=== PATIENT | female | born 1970 | race Caucasian/White ===

== ENCOUNTER → 2018-05-25 13:16 | Outpatient (CLI) | payer BC, SELFPAY ==
--- NOTE | 2018-05-25 13:21 | DI.RAD.S_ITS ---
PROCEDURE: XR LUMBAR SPINE 2-3V INDICATIONS: Low back pain TECHNIQUE: 3 views of the lumbar spine were acquired. COMPARISON: [facility], , L-SPINE MINIMUM 4 VIEWS, 05/05/2011, 11:45. FINDINGS: Bones: No fracture focal osseous destruction. Mild levocurvature. Mild narrowing of the L4-L5 and L5-S1 disc spaces. No interval change Soft tissues: Overlying bowel gas pattern is normal. Nonspecific subcentimeter calcification projecting in the right upper quadrant, possibly cholelithiasis. IMPRESSION: Mild lower lumbar disc degeneration, grossly unchanged Mild levocurvature which has progressed slightly since the prior study. Dictated by: Lucho Witt M.D. on 05/25/2018 at 14:18 Approved by: Lucho Witt M.D. on 05/25/2018 at 14:21
--- NOTE | 2018-05-25 13:21 | DI.RAD.S_ITS ---
PROCEDURE: XR SACRUM COCCYX MIN 2V INDICATIONS: Low back pain TECHNIQUE: 3 views of the sacrum and coccyx acquired. COMPARISON: None. FINDINGS: Bones: No fractures or dislocations. No suspicious bony lesions. Soft tissues: Visualized bowel gas pattern is normal. No suspicious soft tissue densities. IMPRESSION: No fracture Dictated by: Lucho Witt M.D. on 05/25/2018 at 14:21 Approved by: Lucho Witt M.D. on 05/25/2018 at 14:23
[2018-05-25 13:56] LABS: Erythrocyte Sedimentation Rate 7 MM/HR (0-20)
[2018-05-25 13:58] LABS: C-Reactive Protein Quant < 0.5 mg/dL (<1.0)
== END ==
PROVIDERS: Family Provider Internal Medicine; PCP Internal Medicine; Visit Provider Physician Assistant
DX: M54.5 Low back pain (principal); M51.36 Other intervertebral disc degeneration, lumbar region; M51.37 Other intervertebral disc degeneration, lumbosacral region
CPT/HCPCS: 36415; 72100; 72220; 85651; 86140

== ENCOUNTER → 2018-10-26 07:04 | Outpatient (CLI) | payer OTHER, SELFPAY ==
--- NOTE | 2018-10-26 | DI.US.S_ITS ---
PROCEDURE: US PELVIC COMPLETE INDICATIONS: Left lower quadrant pain TECHNIQUE: Real-time scanning was performed of the pelvic organs, with image documentation. Additional endovaginal scanning was necessary due to incomplete visualization of the adnexal and endometrial structures by transabdominal scanning. COMPARISON: [facility], US, PELVIC COMPLETE, 08/08/2017, 11:25. [facility], , PELVIC COMPLETE, 08/04/2017, 13:20. FINDINGS: Transabdominal scanning: Limited scanning through the kidneys shows no hydronephrosis. No pathologic free abdominal or pelvic fluid. Endovaginal scanning: Uterus: Uterus is normal in size at 3.1 x 4.5 x 6.0 cm, anteverted. Notice made of the small 2.0 x 1.9 x 2.9 cm intramural fibroid on the right The endometrium measures 3 mm in combined thickness. Ovaries: The ovaries bilaterally are normal in size measuring up to 1.1 x 1.9 x 2.9 cm on the right and 1.3 x 1.6 x 1.8 cm on the left. IMPRESSION: Small intramural right-sided uterine fibroid, normal endometrial thickness, normal appearing ovaries and there is no identified source of reported left lower quadrant pain. Dictated by: Ousmane Hernandez M.D. on 10/26/2018 at 8:17 Approved by: Ousmane Hernandez M.D. on 10/26/2018 at 8:25
== END ==
PROVIDERS: Family Provider Internal Medicine; PCP Internal Medicine; Visit Provider Obstetrics & Gynecology
DX: R10.32 Left lower quadrant pain (principal); D25.1 Intramural leiomyoma of uterus
CPT/HCPCS: 76830; 76856

== ENCOUNTER 2019-01-28 19:52 | Observation (INO) | payer OTHER, SELFPAY ==
[2019-01-28 19:57] VITALS: BP 126/85; PULSE 75; RESP 16; TEMP 36.3; O2SAT 98; BMI 22.2
--- NOTE | 2019-01-28 20:13 | DI.CT.S_ITS ---
PROCEDURE: CT HEAD/BRAIN WO CON INDICATIONS: epigastic pain, dizzy TECHNIQUE: Noncontrast 4.5 mm thick angled axial sections acquired from the foramen magnum to the vertex, with coronal and sagittal reformats. For radiation dose reduction, the following was used: automated exposure control, adjustment of mA and/or kV according to patient size. COMPARISON: None. FINDINGS: Image quality: Excellent. CSF spaces: Basal cisterns are patent. No extra-axial fluid collections. Ventricles are normal in size and shape. Brain: No midline shift. No intracranial masses or hemorrhage. Valdez-white matter interface is normal. Skull and face: Calvarium and visualized facial bones are intact, without suspicious lesions. Sinuses: Visualized sinuses and mastoids are clear. IMPRESSION: No CT evidence of acute intracranial process. Dictated by: Mirna Jc M.D. on 01/28/2019 at 21:21 Approved by: Mirna Jc M.D. on 01/28/2019 at 21:21
--- NOTE | 2019-01-28 20:13 | DI.RAD.S_ITS ---
PROCEDURE: XR CHEST 1V INDICATIONS: sudden onset dizziness TECHNIQUE: One view of the chest was acquired. COMPARISON: [facility], , CHEST 2 VIEW, 04/06/2015, 11:20. FINDINGS: Surgical changes and devices: None. Lungs and pleura: Lungs are clear. No pleural effusions or pneumothorax. Mediastinum: Mediastinal contours appear normal. Heart size is normal. Bones and chest wall: No suspicious bony lesions. Overlying soft tissues appear unremarkable. IMPRESSION: Normal chest. Dictated by: Mirna Jc M.D. on 01/28/2019 at 21:21 Approved by: Mirna Jc M.D. on 01/28/2019 at 21:21
[2019-01-28 20:25] LABS: Add Manual Diff / Slide Review NO; Basophils Absolute Auto 100 /uL (0-100); Basophils Percent Auto 0.7 % (0-2); Eosinophils Absolute Auto 100 /uL (0-450); Eosinophils Percent Auto 0.8 % (2-4); Hematocrit 40.8 % (36-46); Hemoglobin 13.9 g/dL (12.0-16.0); Lymphocytes Absolute Auto 1300 /uL (1100-4500); Lymphocytes Percent Auto 12.9 % (25-40); Mean Corpuscular HGB Conc 34.1 % (30-36); Mean Corpuscular Hemoglobin 32.1 PG (26-34); Mean Corpuscular Volume 94.2 fL (80-100); Monocytes Absolute Auto 600 /uL (0-900); Monocytes Percent Auto 5.9 % (3-14); Neutrophils Absolute Auto 7900 /uL (1500-7000); Neutrophils Percent Auto 79.7 % (50-75); Platelet Count 230 X10^3/uL (150-400); Red Blood Cell Count 4.33 X10^6/uL (4.0-5.2); Red Cell Distribution Width 13.2 % (11.6-14.8); White Blood Cell Count 9.9 X10^3/uL (4.5-11.0)
--- NOTE | 2019-01-28 20:25 | ED.DIZZY ---
HPI - Dizziness <Sena Camacho, LUMBER PILER OPERATOR-BC - Last Filed: 01/28/19 21:13> General Chief Complaint: Dizziness Stated Complaint: dizziness with N/V x2 days Time Seen by Provider: 01/28/19 20:02 Source: patient and family Mode of arrival: ambulatory Limitations: no limitations History of Present Illness HPI Narrative: The patient is a 48-year-old female former smoker with history of ovarian cyst who presents with chief complaint of nausea vomiting and dizziness for the past 2 days. Prior to this, she felt as though she had a cold coming and tried some ear drops. She states there alcohol ear drops am to dry out her ears. She states the dizziness and spinning started on Tuesday, when she fell asleep and then woke up with severe nausea vomiting. She states that the room was spinning around her. She states that she currently feels like she is spinning, worsened by movement and changes in position. She does report left ear and pain. She denies any fevers. She has tried nasal spray, Children's Sudafed, and feels no better. She also states that she has some epigastric pain, and has been evaluated by her PCP for this. She states this is been ongoing for a month. She denies any abdominal pain, dysuria urgency or frequency. Related Data Home Medications Medication Instructions Recorded Confirmed multivitamin [Multiple Vitamins] 1 tab PO QDAY #0 tab 03/31/16 10/26/18 [ARNICA] #0 08/04/17 10/26/18 [BROMOLINE] #0 08/04/17 10/26/18 [TURMERIC] #0 08/04/17 10/26/18 progesterone micronized 100 mg 100 mg PO QPM 05/25/18 01/29/19 capsule Previous Rx's Medication Instructions Recorded fluticasone propionate 1 spray INTRANASAL SEE 04/07/17 INSTRUCTIONS #16 gm ondansetron 8 mg disintegrating 8 mg PO BID PRN #20 tab 10/26/18 tablet Allergies Allergy/AdvReac Type Severity Reaction Status Date / Time NSAIDS (Non-Steroidal Allergy Unknown BLISTERS; Verified 01/28/19 20:00 Anti-Inflamma PHOTOSENSITIVITY [NSAIDS (NON-STEROIDAL ANTI-INFLAMMA] Penicillins [PENICILLINS] Allergy Unknown HIVES Verified 01/28/19 20:00 gabapentin [GABAPENTIN] AdvReac Unknown tolerated Verified 01/28/19 20:00 well, reacted when dc'd; does not want to take NARCOTIC Allergy Unknown STATES Uncoded 01/28/19 20:00 SENSITIVITY Review of Systems <BRAYDEN Cerda - Last Filed: 01/28/19 21:13> Review of Systems GENERAL: Denies chills, fatigue, malaise, fever, sweats. HEENT: Denies sinus pain, ear pain, sore throat, difficulty swallowing, dizziness. RESPIRATORY: Denies dyspnea, cough, wheezing, hemoptysis, sputum. CARDIOVASCULAR: Denies chest pain, palpitations, orthopnea, edema, GASTROINTESTINAL: See HPI : Denies dysuria, frequency, incontinence, hematuria, urinary retention. MUSCULOSKELETAL: denies weakness, joint pain, or bony pain SKIN: Denies rash, skin lesions, or other NEUROLOGIC: See HPI PSYCHIATRIC: No concerning psychosocial issues. 12 point review of systems is negative except for those stated above PFSH <BRAYDEN Cerda - Last Filed: 01/28/19 21:13> Surgical History Status post discectomy Status post discectomy Status post knee surgery Status post knee surgery Status post knee surgery Status post laparoscopy Status post laparoscopy (07/18/17) Family History (Updated 03/08/14 @ 00:00 by Conversion Provider) Father Age: 70 High cholesterol Social History Smoking Status: Former smoker Family History Father Age: 70 High cholesterol Social History Smoking Status: Former smoker Exam <BRAYDEN Cerda - Last Filed: 01/28/19 21:13> Narrative Exam Narrative: GENERAL: Female lying on stretcher holding a vomit bag HEAD: Atraumatic. Normocephalic. No temporal or scalp tenderness. EYES: Pupils equal round and reactive. Extraocular motions intact. No scleral icterus. No injection or drainage. Lateral nystagmus noted. ENT: Nose without bleeding, purulent drainage or septal hematoma. Throat without erythema, tonsillar hypertrophy or exudate. Uvula midline. Airway patent. Bilateral TMs pearly schrader. NECK: Trachea midline. No JVD or lymphadenopathy. Supple, nontender, no meningeal signs. CARDIOVASCULAR: Regular rate and rhythm without murmurs, gallops, or rubs. RESPIRATORY: Clear to auscultation. Breath sounds equal bilaterally. No wheezes, rales, or rhonchi. No cough. No increased respiratory effort. No accessory muscle use. No stridor. GASTROINTESTINAL: Abdomen soft, non-tender, nondistended. No hepato-splenomegaly, or palpable masses. No guarding. Active bowel sounds all 4 quadrants EXTREMITIES: No clubbing, cyanosis, or edema. No joint tenderness, effusion, or edema noted. BACK: Nontender without deformity or crepitance. No flank tenderness. NEURO: AOx3. Speech is clear. Strength is equal upper and lower extremities bilaterally. No gross cranial nerve deficit. SKIN: No rash or erythema. Initial Vital Signs Initial Vital Signs: Vital Signs Temperature 97.4 F L 01/28/19 19:57 Pulse Rate 75 01/28/19 19:57 Respiratory Rate 16 01/28/19 19:57 Blood Pressure 126/85 01/28/19 19:57 Pulse Oximetry 98 01/28/19 19:57 <Trever Keller DO - Last Filed: 01/29/19 00:46> Initial Vital Signs Initial Vital Signs: Vital Signs Temperature 97.4 F L 01/28/19 19:57 Pulse Rate 75 01/28/19 19:57 Respiratory Rate 16 01/28/19 19:57 Blood Pressure 126/85 01/28/19 19:57 Pulse Oximetry 98 01/28/19 19:57 Scores <BRAYDEN Cerda - Last Filed: 01/28/19 21:13> GCS [place] coma scale eye opening: Spontaneous Caro coma scale verbal response: Orientated [place] coma scale motor response: Obey commands Caro coma scale total score: 15 Course <BRAYDEN Cerda - Last Filed: 01/28/19 21:13> Orders Ordered: ED Orders 01/28/19 20:13 CT head/brain wo con Stat XR chest 1V Stat EKG-12 Lead Stat 01/28/19 20:15 Amylase Stat Complete Blood Count AUTO DIFF Stat Comprehensive Metabolic Panel Stat Lipase Stat Magnesium Stat Troponin I Stat 01/29/19 06:00 Basic Metabolic Panel Stat Complete Blood Count AUTO DIFF Stat Discontinued Medications Sodium Chloride (Normal Saline 0.9%) 1,000 mls @ 1,000 mls/hr IV BOLUS ONE Stop: 01/28/19 21:24 Last Infusion: 01/28/19 22:17 Dose: 0 mls/hr Admin: 01/28/19 20:29 Dose: 1,000 mls/hr Meclizine HCl (Antivert) 50 mg PO NOW ONE Stop: 01/28/19 21:04 Last Admin: 01/28/19 21:09 Dose: 50 mg Ondansetron HCl (Zofran) 4 mg IV NOW ONE Stop: 01/28/19 20:13 Last Admin: 01/28/19 20:29 Dose: 4 mg Ondansetron HCl (Zofran) 4 mg IV NOW ONE Stop: 01/29/19 00:14 Last Admin: 01/29/19 00:21 Dose: 4 mg Pantoprazole Sodium (Protonix) 40 mg IV NOW ONE Stop: 01/29/19 00:13 Last Admin: 01/29/19 00:22 Dose: 40 mg Vital Signs - 8 hr 01/28/19 19:57 01/28/19 21:33 01/29/19 00:39 Temperature 97.4 F L Pulse Rate 75 68 68 Respiratory Rate 16 15 16 Blood Pressure 126/85 Blood Pressure [Right Arm] 100/58 L 110/68 Pulse Oximetry 98 98 96 <Trever Keller, - Last Filed: 01/29/19 00:46> Course Narrative: I received this patient in sign-out and performed an independent history and physical exam. She continues to have significant vertiginous type dizziness and persistent nausea and vomiting with any motion. She denies any trauma. Labs and head CT are unremarkable, [place]-Hallpike maneuver notes fast which nystagmus to the right side. Ginny's maneuver was unsuccessful in improving patient's symptoms. HINTS Exam noted minimal delay with Head Impulse. Nystagmus is fast twitch to the right. Head impulse test: Loss of fixation with corrective saccade when head turned to the [Right] Nystagmus: unidirectional, horizontal with fast twitch to the Right Skew Deviation: grossly absent Patient requires observation in the hospital for hydration, stabilization of her condition, and more imaging to rule out more significant underlying causes such as stroke Orders Ordered: ED Orders 01/28/19 20:13 CT head/brain wo con Stat XR chest 1V Stat EKG-12 Lead Stat 01/28/19 20:15 Amylase Stat Complete Blood Count AUTO DIFF Stat Comprehensive Metabolic Panel Stat Lipase Stat Magnesium Stat Troponin I Stat 01/29/19 06:00 Basic Metabolic Panel Stat Complete Blood Count AUTO DIFF Stat Discontinued Medications Sodium Chloride (Normal Saline 0.9%) 1,000 mls @ 1,000 mls/hr IV BOLUS ONE Stop: 01/28/19 21:24 Last Infusion: 01/28/19 22:17 Dose: 0 mls/hr Admin: 01/28/19 20:29 Dose: 1,000 mls/hr Meclizine HCl (Antivert) 50 mg PO NOW ONE Stop: 01/28/19 21:04 Last Admin: 01/28/19 21:09 Dose: 50 mg Ondansetron HCl (Zofran) 4 mg IV NOW ONE Stop: 01/28/19 20:13 Last Admin: 01/28/19 20:29 Dose: 4 mg Ondansetron HCl (Zofran) 4 mg IV NOW ONE Stop: 01/29/19 00:14 Last Admin: 01/29/19 00:21 Dose: 4 mg Pantoprazole Sodium (Protonix) 40 mg IV NOW ONE Stop: 01/29/19 00:13 Last Admin: 01/29/19 00:22 Dose: 40 mg Vital Signs - 8 hr 01/28/19 19:57 01/28/19 21:33 01/29/19 00:39 Temperature 97.4 F L Pulse Rate 75 68 68 Respiratory Rate 16 15 16 Blood Pressure 126/85 Blood Pressure [Right Arm] 100/58 L 110/68 Pulse Oximetry 98 98 96 MDM - Dizziness <BRAYDEN Cerda - Last Filed: 01/28/19 21:13> Lab Data Result diagrams: 01/28/19 20:15 01/28/19 20:15 Lab Results 01/28/19 01/28/19 01/28/19 Range/Units 20:15 20:15 20:15 WBC 9.9 (4.5-11.0) X10^3/uL RBC 4.33 (4.0-5.2) X10^6/uL Hgb 13.9 (12.0-16.0) g/dL Hct 40.8 (36-46) % MCV 94.2 (80-100) fL MCH 32.1 (26-34) PG MCHC 34.1 (30-36) % RDW 13.2 (11.6-14.8) % Plt Count 230 (150-400) X10^3/uL Neut % (Auto) 79.7 H (50-75) % Lymph % (Auto) 12.9 L (25-40) % Powell % (Auto) 5.9 (3-14) % Eos % (Auto) 0.8 L (2-4) % Baso % (Auto) 0.7 (0-2) % Neut # (Auto) 7900 H (6459-2797) /uL Lymph # (Auto) 1300 (5011-7706) /uL Powell # (Auto) 600 (0-900) /uL Eos # (Auto) 100 (0-450) /uL Baso # (Auto) 100 (0-100) /uL Sodium 140 (137-145) mmol/L Potassium 3.9 (3.4-5.1) mmol/L Chloride 103 (98-107) mmol/L Carbon Dioxide 28 (22-32) mmol/L BUN 17 (7-17) mg/dL Creatinine 0.60 (0.52-1.04) mg/dL Estimated GFR > 60.0 (>60) mL/min BUN/Creatinine Ratio 28.3 H (6-22) Glucose 104 H (70-100) mg/dL Calcium 9.4 (8.4-10.2) mg/dL Magnesium 1.9 (1.6-2.3) mg/dL Total Bilirubin 0.8 (0.2-1.3) mg/dL AST 26 (14-36) IU/L ALT 13 (9-52) IU/L Alkaline Phosphatase 80 (38-126) U/L Troponin I < 0.012 (0.01-0.034) ng/mL Total Protein 7.3 (6.3-8.2) g/dL Albumin 4.3 (3.5-5.0) g/dL Globulin 3.0 (1.7-4.1) g/dL Albumin/Globulin Ratio 1.4 (1.0-2.8) Amylase 115 H (30-110) U/L Lipase 198 (23-300) U/L ECG Data Attestation: I personally reviewed and interpreted this ECG as follows: Interpretation: Sinus bradycardia. Ventricular rate 58. No ectopy noted. NV interval 151. QRS duration 97 MDM Narrative Medical decision making narrative: The patient is a 48-year-old female who presents with a chief complaint of dizziness, spinning sensation with a sudden onset 3 days ago. Given the sudden onset, and family history of stroke, I did obtain a head CT. Basic lab work is obtained in addition to cardiac labs as the patient has been complaining of epigastric pain for the past several weeks and working with her primary care provider. IV was started, IV fluids Zofran and meclizine were given. The patient's exam is very concerning for vertigo. The patient was signed out to Dr Keller at 9:00 p.m. with lab work and imaging pending at this time. <Trever Keller, DO - Last Filed: 01/29/19 00:46> Lab Data Lab Results 01/28/19 01/28/19 01/28/19 Range/Units 20:15 20:15 20:15 WBC 9.9 (4.5-11.0) X10^3/uL RBC 4.33 (4.0-5.2) X10^6/uL Hgb 13.9 (12.0-16.0) g/dL Hct 40.8 (36-46) % MCV 94.2 (80-100) fL MCH 32.1 (26-34) PG MCHC 34.1 (30-36) % RDW 13.2 (11.6-14.8) % Plt Count 230 (150-400) X10^3/uL Neut % (Auto) 79.7 H (50-75) % Lymph % (Auto) 12.9 L (25-40) % Powell % (Auto) 5.9 (3-14) % Eos % (Auto) 0.8 L (2-4) % Baso % (Auto) 0.7 (0-2) % Neut # (Auto) 7900 H (5561-5781) /uL Lymph # (Auto) 1300 (8077-4895) /uL Powell # (Auto) 600 (0-900) /uL Eos # (Auto) 100 (0-450) /uL Baso # (Auto) 100 (0-100) /uL Sodium 140 (137-145) mmol/L Potassium 3.9 (3.4-5.1) mmol/L Chloride 103 (98-107) mmol/L Carbon Dioxide 28 (22-32) mmol/L BUN 17 (7-17) mg/dL Creatinine 0.60 (0.52-1.04) mg/dL Estimated GFR > 60.0 (>60) mL/min BUN/Creatinine Ratio 28.3 H (6-22) Glucose 104 H (70-100) mg/dL Calcium 9.4 (8.4-10.2) mg/dL Magnesium 1.9 (1.6-2.3) mg/dL Total Bilirubin 0.8 (0.2-1.3) mg/dL AST 26 (14-36) IU/L ALT 13 (9-52) IU/L Alkaline Phosphatase 80 (38-126) U/L Troponin I < 0.012 (0.01-0.034) ng/mL Total Protein 7.3 (6.3-8.2) g/dL Albumin 4.3 (3.5-5.0) g/dL Globulin 3.0 (1.7-4.1) g/dL Albumin/Globulin Ratio 1.4 (1.0-2.8) Amylase 115 H (30-110) U/L Lipase 198 (23-300) U/L Discharge Plan Departure Patient Disposition: Admitted as Observation Clinical Impression: Dizziness Intractable vomiting Qualifiers: Vomiting type: unspecified Nausea presence: with nausea Qualified Code(s): R11.2 - Nausea with vomiting, unspecified Referrals: Karen Miller ARNP [Primary Care Provider] - Admit Date/Time: 01/28/19 23:28 Admit Provider: Sachi Nunez
[2019-01-28] MEDS: ONDANSETRON 4 MG/2 ML INJ IV (20:29)
[2019-01-28] MEDS: SODIUM CHLORIDE 0.9% 1,000 ML 1000 ML IV (20:29)
--- NOTE | 2019-01-28 20:29 | ED_ITS ---
HPI - Dizziness <Sena Camacho, SYSTEMS CHECKOUT MECHANIC-BC - Last Filed: 01/28/19 21:13> General Chief Complaint: Dizziness Stated Complaint: dizziness with N/V x2 days Time Seen by Provider: 01/28/19 20:02 Source: patient and family Mode of arrival: ambulatory Limitations: no limitations History of Present Illness HPI Narrative: The patient is a 48-year-old female former smoker with history of ovarian cyst who presents with chief complaint of nausea vomiting and dizziness for the past 2 days. Prior to this, she felt as though she had a cold coming and tried some ear drops. She states there alcohol ear drops am to dry out her ears. She states the dizziness and spinning started on Tuesday, when she fell asleep and then woke up with severe nausea vomiting. She states that the room was spinning around her. She states that she currently feels like she is spinning, worsened by movement and changes in position. She does report left ear and pain. She denies any fevers. She has tried nasal spray, Children's Sudafed, and feels no better. She also states that she has some epigastric pain, and has been evaluated by her PCP for this. She states this is been ongoing for a month. She denies any abdominal pain, dysuria urgency or frequency. Related Data Home Medications Medication Instructions Recorded Confirmed multivitamin [Multiple Vitamins] 1 tab PO QDAY #0 tab 03/31/16 10/26/18 [ARNICA] #0 08/04/17 10/26/18 [BROMOLINE] #0 08/04/17 10/26/18 [TURMERIC] #0 08/04/17 10/26/18 progesterone micronized 100 mg 100 mg PO QPM 05/25/18 01/29/19 capsule Previous Rx's Medication Instructions Recorded fluticasone propionate 1 spray INTRANASAL SEE 04/07/17 INSTRUCTIONS #16 gm ondansetron 8 mg disintegrating 8 mg PO BID PRN #20 tab 10/26/18 tablet Allergies Allergy/AdvReac Type Severity Reaction Status Date / Time NSAIDS (Non-Steroidal Allergy Unknown BLISTERS; Verified 01/28/19 20:00 Anti-Inflamma PHOTOSENSITIVITY [NSAIDS (NON-STEROIDAL ANTI-INFLAMMA] Penicillins [PENICILLINS] Allergy Unknown HIVES Verified 01/28/19 20:00 gabapentin [GABAPENTIN] AdvReac Unknown tolerated Verified 01/28/19 20:00 well, reacted when dc'd; does not want to take NARCOTIC Allergy Unknown STATES Uncoded 01/28/19 20:00 SENSITIVITY Review of Systems <BRAYDEN Cerda - Last Filed: 01/28/19 21:13> Review of Systems GENERAL: Denies chills, fatigue, malaise, fever, sweats. HEENT: Denies sinus pain, ear pain, sore throat, difficulty swallowing, dizziness. RESPIRATORY: Denies dyspnea, cough, wheezing, hemoptysis, sputum. CARDIOVASCULAR: Denies chest pain, palpitations, orthopnea, edema, GASTROINTESTINAL: See HPI : Denies dysuria, frequency, incontinence, hematuria, urinary retention. MUSCULOSKELETAL: denies weakness, joint pain, or bony pain SKIN: Denies rash, skin lesions, or other NEUROLOGIC: See HPI PSYCHIATRIC: No concerning psychosocial issues. 12 point review of systems is negative except for those stated above PFSH <BRAYDEN Cerda - Last Filed: 01/28/19 21:13> Surgical History Status post discectomy Status post discectomy Status post knee surgery Status post knee surgery Status post knee surgery Status post laparoscopy Status post laparoscopy (07/18/17) Family History (Updated 03/08/14 @ 00:00 by Conversion Provider) Father Age: 70 High cholesterol Social History Smoking Status: Former smoker Family History Father Age: 70 High cholesterol Social History Smoking Status: Former smoker Exam <BRAYDEN Cerda - Last Filed: 01/28/19 21:13> Narrative Exam Narrative: GENERAL: Female lying on stretcher holding a vomit bag HEAD: Atraumatic. Normocephalic. No temporal or scalp tenderness. EYES: Pupils equal round and reactive. Extraocular motions intact. No scleral icterus. No injection or drainage. Lateral nystagmus noted. ENT: Nose without bleeding, purulent drainage or septal hematoma. Throat without erythema, tonsillar hypertrophy or exudate. Uvula midline. Airway patent. Bilateral TMs pearly schrader. NECK: Trachea midline. No JVD or lymphadenopathy. Supple, nontender, no meningeal signs. CARDIOVASCULAR: Regular rate and rhythm without murmurs, gallops, or rubs. RESPIRATORY: Clear to auscultation. Breath sounds equal bilaterally. No wheezes, rales, or rhonchi. No cough. No increased respiratory effort. No accessory muscle use. No stridor. GASTROINTESTINAL: Abdomen soft, non-tender, nondistended. No hepato- splenomegaly, or palpable masses. No guarding. Active bowel sounds all 4 quadrants EXTREMITIES: No clubbing, cyanosis, or edema. No joint tenderness, effusion, or edema noted. BACK: Nontender without deformity or crepitance. No flank tenderness. NEURO: AOx3. Speech is clear. Strength is equal upper and lower extremities bilaterally. No gross cranial nerve deficit. SKIN: No rash or erythema. Initial Vital Signs Initial Vital Signs: Vital Signs Temperature 97.4 F L 01/28/19 19:57 Pulse Rate 75 01/28/19 19:57 Respiratory Rate 16 01/28/19 19:57 Blood Pressure 126/85 01/28/19 19:57 Pulse Oximetry 98 01/28/19 19:57 <Trever Keller DO - Last Filed: 01/29/19 00:46> Initial Vital Signs Initial Vital Signs: Vital Signs Temperature 97.4 F L 01/28/19 19:57 Pulse Rate 75 01/28/19 19:57 Respiratory Rate 16 01/28/19 19:57 Blood Pressure 126/85 01/28/19 19:57 Pulse Oximetry 98 01/28/19 19:57 Scores <BRAYDEN Cerda - Last Filed: 01/28/19 21:13> [facility] [place] coma scale eye opening: Spontaneous Caro coma scale verbal response: Orientated Caro coma scale motor response: Obey commands Caro coma scale total score: 15 Course <BRAYDEN Cerda - Last Filed: 01/28/19 21:13> Orders Ordered: ED Orders 01/28/19 20:13 CT head/brain wo con Stat XR chest 1V Stat EKG-12 Lead Stat 01/28/19 20:15 Amylase Stat Complete Blood Count AUTO DIFF Stat Comprehensive Metabolic Panel Stat Lipase Stat Magnesium Stat Troponin I Stat 01/29/19 06:00 Basic Metabolic Panel Stat Complete Blood Count AUTO DIFF Stat Discontinued Medications Sodium Chloride (Normal Saline 0.9%) 1,000 mls @ 1,000 mls/hr IV BOLUS ONE Stop: 01/28/19 21:24 Last Infusion: 01/28/19 22:17 Dose: 0 mls/hr Admin: 01/28/19 20:29 Dose: 1,000 mls/hr Meclizine HCl (Antivert) 50 mg PO NOW ONE Stop: 01/28/19 21:04 Last Admin: 01/28/19 21:09 Dose: 50 mg Ondansetron HCl (Zofran) 4 mg IV NOW ONE Stop: 01/28/19 20:13 Last Admin: 01/28/19 20:29 Dose: 4 mg Ondansetron HCl (Zofran) 4 mg IV NOW ONE Stop: 01/29/19 00:14 Last Admin: 01/29/19 00:21 Dose: 4 mg Pantoprazole Sodium (Protonix) 40 mg IV NOW ONE Stop: 01/29/19 00:13 Last Admin: 01/29/19 00:22 Dose: 40 mg Vital Signs - 8 hr 01/28/19 19:57 01/28/19 21:33 01/29/19 00:39 Temperature 97.4 F L Pulse Rate 75 68 68 Respiratory Rate 16 15 16 Blood Pressure 126/85 Blood Pressure [Right Arm] 100/58 L 110/68 Pulse Oximetry 98 98 96 <Trever Keller, - Last Filed: 01/29/19 00:46> Course Narrative: I received this patient in sign-out and performed an independent history and physical exam. She continues to have significant vertiginous type dizziness and persistent nausea and vomiting with any motion. She denies any trauma. Labs and head CT are unremarkable, Ne-Hallpike maneuver notes fast which nystagmus to the right side. Ginny's maneuver was unsuccessful in improving patient's symptoms. HINTS Exam noted minimal delay with Head Impulse. Nystagmus is fast twitch to the right. Head impulse test: Loss of fixation with corrective saccade when head turned to the [Right] Nystagmus: unidirectional, horizontal with fast twitch to the Right Skew Deviation: grossly absent Patient requires observation in the hospital for hydration, stabilization of her condition, and more imaging to rule out more significant underlying causes such as stroke Orders Ordered: ED Orders 01/28/19 20:13 CT head/brain wo con Stat XR chest 1V Stat EKG-12 Lead Stat 01/28/19 20:15 Amylase Stat Complete Blood Count AUTO DIFF Stat Comprehensive Metabolic Panel Stat Lipase Stat Magnesium Stat Troponin I Stat 01/29/19 06:00 Basic Metabolic Panel Stat Complete Blood Count AUTO DIFF Stat Discontinued Medications Sodium Chloride (Normal Saline 0.9%) 1,000 mls @ 1,000 mls/hr IV BOLUS ONE Stop: 01/28/19 21:24 Last Infusion: 01/28/19 22:17 Dose: 0 mls/hr Admin: 01/28/19 20:29 Dose: 1,000 mls/hr Meclizine HCl (Antivert) 50 mg PO NOW ONE Stop: 01/28/19 21:04 Last Admin: 01/28/19 21:09 Dose: 50 mg Ondansetron HCl (Zofran) 4 mg IV NOW ONE Stop: 01/28/19 20:13 Last Admin: 01/28/19 20:29 Dose: 4 mg Ondansetron HCl (Zofran) 4 mg IV NOW ONE Stop: 01/29/19 00:14 Last Admin: 01/29/19 00:21 Dose: 4 mg Pantoprazole Sodium (Protonix) 40 mg IV NOW ONE Stop: 01/29/19 00:13 Last Admin: 01/29/19 00:22 Dose: 40 mg Vital Signs - 8 hr 01/28/19 19:57 01/28/19 21:33 01/29/19 00:39 Temperature 97.4 F L Pulse Rate 75 68 68 Respiratory Rate 16 15 16 Blood Pressure 126/85 Blood Pressure [Right Arm] 100/58 L 110/68 Pulse Oximetry 98 98 96 MDM - Dizziness <BRAYDEN Cerda - Last Filed: 01/28/19 21:13> Lab Data Result diagrams: 01/28/19 20:15 01/28/19 20:15 Lab Results 01/28/19 01/28/19 01/28/19 Range/Units 20:15 20:15 20:15 WBC 9.9 (4.5-11.0) X10^3/uL RBC 4.33 (4.0-5.2) X10^6/uL Hgb 13.9 (12.0-16.0) g/dL Hct 40.8 (36-46) % MCV 94.2 (80-100) fL MCH 32.1 (26-34) PG MCHC 34.1 (30-36) % RDW 13.2 (11.6-14.8) % Plt Count 230 (150-400) X10^3/uL Neut % (Auto) 79.7 H (50-75) % Lymph % (Auto) 12.9 L (25-40) % [place] % (Auto) 5.9 (3-14) % Eos % (Auto) 0.8 L (2-4) % Baso % (Auto) 0.7 (0-2) % Neut # (Auto) 7900 H (5010-7761) /uL Lymph # (Auto) 1300 (3959-0829) /uL [place] # (Auto) 600 (0-900) /uL Eos # (Auto) 100 (0-450) /uL Baso # (Auto) 100 (0-100) /uL Sodium 140 (137-145) mmol/L Potassium 3.9 (3.4-5.1) mmol/L Chloride 103 (98-107) mmol/L Carbon Dioxide 28 (22-32) mmol/L BUN 17 (7-17) mg/dL Creatinine 0.60 (0.52-1.04) mg/dL Estimated GFR > 60.0 (>60) mL/min BUN/Creatinine Ratio 28.3 H (6-22) Glucose 104 H (70-100) mg/dL Calcium 9.4 (8.4-10.2) mg/dL Magnesium 1.9 (1.6-2.3) mg/dL Total Bilirubin 0.8 (0.2-1.3) mg/dL AST 26 (14-36) IU/L ALT 13 (9-52) IU/L Alkaline Phosphatase 80 (38-126) U/L Troponin I < 0.012 (0.01-0.034) ng/mL Total Protein 7.3 (6.3-8.2) g/dL Albumin 4.3 (3.5-5.0) g/dL Globulin 3.0 (1.7-4.1) g/dL Albumin/Globulin Ratio 1.4 (1.0-2.8) Amylase 115 H (30-110) U/L Lipase 198 (23-300) U/L ECG Data Attestation: I personally reviewed and interpreted this ECG as follows: Interpretation: Sinus bradycardia. Ventricular rate 58. No ectopy noted. NH interval 151. QRS duration 97 MDM Narrative Medical decision making narrative: The patient is a 48-year-old female who presents with a chief complaint of dizziness, spinning sensation with a sudden onset 3 days ago. Given the sudden onset, and family history of stroke, I did obtain a head CT. Basic lab work is obtained in addition to cardiac labs as the patient has been complaining of epigastric pain for the past several weeks and working with her primary care provider. IV was started, IV fluids Zofran and meclizine were given. The patient's exam is very concerning for vertigo. The patient was signed out to Dr Keller at 9:00 p.m. with lab work and imaging pending at this time. <Trever Keller, DO - Last Filed: 01/29/19 00:46> Lab Data Lab Results 01/28/19 01/28/19 01/28/19 Range/Units 20:15 20:15 20:15 WBC 9.9 (4.5-11.0) X10^3/uL RBC 4.33 (4.0-5.2) X10^6/uL Hgb 13.9 (12.0-16.0) g/dL Hct 40.8 (36-46) % MCV 94.2 (80-100) fL MCH 32.1 (26-34) PG MCHC 34.1 (30-36) % RDW 13.2 (11.6-14.8) % Plt Count 230 (150-400) X10^3/uL Neut % (Auto) 79.7 H (50-75) % Lymph % (Auto) 12.9 L (25-40) % [place] % (Auto) 5.9 (3-14) % Eos % (Auto) 0.8 L (2-4) % Baso % (Auto) 0.7 (0-2) % Neut # (Auto) 7900 H (8752-9430) /uL Lymph # (Auto) 1300 (6138-2038) /uL [place] # (Auto) 600 (0-900) /uL Eos # (Auto) 100 (0-450) /uL Baso # (Auto) 100 (0-100) /uL Sodium 140 (137-145) mmol/L Potassium 3.9 (3.4-5.1) mmol/L Chloride 103 (98-107) mmol/L Carbon Dioxide 28 (22-32) mmol/L BUN 17 (7-17) mg/dL Creatinine 0.60 (0.52-1.04) mg/dL Estimated GFR > 60.0 (>60) mL/min BUN/Creatinine Ratio 28.3 H (6-22) Glucose 104 H (70-100) mg/dL Calcium 9.4 (8.4-10.2) mg/dL Magnesium 1.9 (1.6-2.3) mg/dL Total Bilirubin 0.8 (0.2-1.3) mg/dL AST 26 (14-36) IU/L ALT 13 (9-52) IU/L Alkaline Phosphatase 80 (38-126) U/L Troponin I < 0.012 (0.01-0.034) ng/mL Total Protein 7.3 (6.3-8.2) g/dL Albumin 4.3 (3.5-5.0) g/dL Globulin 3.0 (1.7-4.1) g/dL Albumin/Globulin Ratio 1.4 (1.0-2.8) Amylase 115 H (30-110) U/L Lipase 198 (23-300) U/L Discharge Plan Departure Patient Disposition: Admitted as Observation Clinical Impression: Dizziness Intractable vomiting Qualifiers: Vomiting type: unspecified Nausea presence: with nausea Qualified Code(s): R11.2 - Nausea with vomiting, unspecified Referrals: Karen Miller ARNP [Primary Care Provider] - Admit Date/Time: 01/28/19 23:28 Admit Provider: Sachi Nunez
[2019-01-28 20:37] LABS: Alanine Aminotransferase 13 IU/L (9-52); Albumin 4.3 g/dL (3.5-5.0); Albumin Globulin Ratio 1.4 (1.0-2.8); Alkaline Phosphatase 80 U/L (38-126); Amylase 115 U/L (30-110); Aspartate Aminotransferase 26 IU/L (14-36); BUN Creatinine Ratio 28.3 (6-22); Bilirubin Total 0.8 mg/dL (0.2-1.3); Blood Urea Nitrogen 17 mg/dL (7-17); Calcium 9.4 mg/dL (8.4-10.2); Carbon Dioxide 28 mmol/L (22-32); Chloride 103 mmol/L (98-107); Estimated Glomerular Filt Rate > 60.0 mL/min (>60); Glucose 104 mg/dL (70-100); HEMOLYSIS 23 (0-50); Lipase 198 U/L (23-300); Magnesium 1.9 mg/dL (1.6-2.3); Potassium 3.9 mmol/L (3.4-5.1); Sodium 140 mmol/L (137-145); Total Protein 7.3 g/dL (6.3-8.2)
[2019-01-28 20:49] LABS: Troponin I < 0.012 ng/mL (0.01-0.034)
[2019-01-28] MEDS: MECLIZINE HCL 12.5 MG TABLET 50 MG PO (21:09)
[2019-01-28 21:33] VITALS: BP 100/58; PULSE 68; RESP 15; O2SAT 98
[2019-01-29] MEDS: ONDANSETRON 4 MG/2 ML INJ IV ×3 (00:21→13:37)
[2019-01-29] MEDS: PANTOPRAZOLE 40 MG VIAL IV (00:22)
[2019-01-29 00:39] VITALS: BP 110/68; PULSE 68; RESP 16; O2SAT 96
[2019-01-29 00:50] VITALS: BP 117/82; PULSE 66; RESP 14; TEMP 37.3; O2SAT 97
--- NOTE | 2019-01-29 00:50 | DI.MRI.S_ITS ---
PROCEDURE: MR STROKE Pre- and post-contrast brain MRI, non-contrast brain MR angiogram, pre- and postcontrast neck MR angiogram INDICATIONS: profound dizziness, ataxia, vomiting TECHNIQUE: Brain: Noncontrast axial T1 spin echo, axial T2 fast spin echo, sagittal and axial FLAIR, coronal T2 fast spin echo, axial gradient echo, axial diffusion and ADC through the brain. After the administration of contrast, axial 3D VIBE of the cranial vasculature and brain. Brain MRA: Non-contrast 3-D time of flight MR angiogram, with multiple xkdztwz-mdxkqcevc-mujfpmypje (MIP) reformats performed. Neck MRA: Axial and sagittal TruFISP through the neck. Coronal dynamic MR angiogram during administration of contrast in the arterial and venous phases, with 3-dimenstional yzrkwoa-beabxixqi-rxjdgofpcy (MIP) reformats constructed from subtraction images. COMPARISON: None. FINDINGS: Image quality: Excellent. BRAIN: CSF spaces: Ventricles are normal in size and shape. Basal cisterns are patent. No extra-axial fluid collections. Brain: No intracranial bleeds or mass effects. [place]-white matter interface is normal. Diffusion weighted images show no acute ischemic insults. Brainstem appears normal. Normal intravascular flow voids are present. No abnormal intracranial enhancement. 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 Skull and face: Calvarial marrow signal is normal. Orbits appear normal. Sinuses: Sinuses and mastoids are clear. BRAIN MR ANGIOGRAM: Anterior circulation: Intracranial internal carotid arteries are normal in size and enhancement. The flow within the paired anterior cerebral arteries is normal and symmetric. The flow within the middle cerebral arteries is normal and symmetric. The anterior communicating artery is seen. No stenoses, occlusions, or aneurysms. Posterior circulation: The visualized portions of the vertebral arteries demonstrate normal caliber, and join to form a normal appearing basilar artery. The flow within the posterior cerebral arteries is normal and symmetric. The right posterior cerebral artery has a origin which is a congenital anatomic variant. No stenoses, occlusions, or aneurysms. Dural sinuses demonstrate normal postcontrast enhancement. NECK MR ANGIOGRAM: Carotids: Great vessels demonstrate a conventional anatomy as they arise from the aortic arch. The origins of the common carotid arteries appear patent. The calibers and courses of both common carotid arteries are normal. The bifurcation regions appear normal bilaterally. The internal carotid arteries demonstrate normal course and caliber. Posterior circulation: Origin the left vertebral artery is fully patent. Flow in the right vertebral artery is discontinuous and irregular concerning for right vertebral artery dissection. Patient is left vertebral artery dominant. More superior portions of both vertebral arteries demonstrate normal course and caliber, and join to form a normal appearing basilar artery. Miscellaneous: Subclavian arteries appear patent. Pre-contrast images through the neck show no soft tissue abnormalities. IMPRESSION: BRAIN MRI: 1. No acute intracranial disease process. 2. No areas of acute or chronic infarction. 3. No intracranial hemorrhage. 4. No abnormal intracranial signal or suspicious postcontrast enhancement. 5. 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 BRAIN MR ANGIOGRAM: 1. Diminished flow in the intracranial segment of the right vertebral artery. 2. Otherwise, negative MR angiogram of the head NECK MR ANGIOGRAM: 1. Flow in the right vertebral artery is discontinuous and irregular concerning for vertebral artery dissection. 2. The left vertebral artery is fully patent. 4. The internal carotid arteries are fully patent. Findings discussed with Karen Caban on 01/29/19 at 1317 hrs. Dictated by: Pretty Lopes MD, PhD on 01/29/2019 at 12:52 Approved by: Pretty Lopes MD, PhD on 01/29/2019 at 13:21
[2019-01-29 00:53] VITALS: BMI 22.4
[2019-01-29] MEDS: SODIUM CHLORIDE 0.9% 1,000 ML 125 ML IV ×3 (01:12→17:56)
[2019-01-29] MEDS: MECLIZINE HCL 12.5 MG TABLET 25 MG PO ×4 (06:09→23:59)
[2019-01-29 07:41] VITALS: BP 116/73; PULSE 70; RESP 19; TEMP 37.3; O2SAT 98
--- NOTE | 2019-01-29 08:43 | P.HP_ITS ---
History of Present Illness Date Patient Seen: 01/29/19 Time Patient Seen: 08:31 Chief complaint: dizziness with N/V x2 days Narrative: Patient is a 48-year-old female who presented with 3 day history of onset of dizziness. Quite severe. Vomiting persistently. Apparently patient started about a week ago after returning from a mountain bike trip. Thought maybe she had contracted food poisoning because the next day she started throwing up. Seemed to be better on Tuesday and then Tuesday started feeling sick again. No fevers or chills. Persistent vomiting. No lightheadedness diz ziness or other change. Seemed to be slowly getting better until Tuesday night when she developed acute onset of severe spinning. Basically any time she moved her head she would throw up. Seemed to not get better and actually maybe got a little worse. Was unable to keep anything doubt presented to emergency room. Never had anything like this before. No one else has been sick. 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 No other change. Patient has not had a headache. Visual change. Numbness tingling. No weakness. No motor changes. No change in bowel movements no urinary changes. If it would be for the dizziness she would feel too bad. Otherwise no significant change. Otherwise she has been relatively healthy. Has some chronic left rib pain. Has history of IBS. Has not been significantly active recently. No other changes. Patient has been under a lot of stress. Both at work and at home. Seems to be really getting quite bad recently. No other changes. Has felt a little bit out of control. No other complaint. Patient does have a history of some ear problems but reyes jessica otitis externa, no inner ear issues. Past medical history postmenopausal, IBS, multiple joint issues Past surgical history back surgery x2 1109 and 1209, bilateral knee surgeries, labral tear surgical repair hip 15 and 17, exploratory pelvic bladder surgery 23 years of age, laparoscopic endometriosis and hemorrhage cyst /18 Family history Father hyperlipidemia mother cervical cancer has had a sibling suicide, paternal grandfather CVA, maternal grandmother CVA although alcohol and smoking heavily. Social history , Education BA, currently employed Patient History Surgical History Status post discectomy Status post discectomy Status post knee surgery Status post knee surgery Status post knee surgery Status post laparoscopy Status post laparoscopy (07/18/17) Family History Father Age: 70 High cholesterol Social History household members: spouse Smoking Status: Former smoker Family & Social History Family History Father Age: 70 High cholesterol Social History: household members spouse Prior Living Arrangements House Safety & Behavioral: Feels Safe in Current Yes Environment Been Physically Hurt or No Threatened By a Person Suicidal Ideation Description None Suicide Plan Description No Plan Tobacco & Substance use: Smoking Status Former smoker alcohol intake frequency a few times a week Substance Use Type marijuana Meds Home Medications Medication Instructions Recorded Confirmed Type multivitamin [Multiple Vitamins] 1 tab PO QDAY #0 tab 03/31/16 10/26/18 History fluticasone propionate 1 spray INTRANASAL SEE 04/07/17 01/29/19 Rx INSTRUCTIONS #16 gm [ARNICA] #0 08/04/17 10/26/18 History [BROMOLINE] #0 08/04/17 10/26/18 History [TURMERIC] #0 08/04/17 10/26/18 History progesterone micronized 100 mg 100 mg PO QPM 05/25/18 01/29/19 History capsule ondansetron 8 mg disintegrating 8 mg PO BID PRN #20 tab 10/26/18 Rx tablet Allergies Allergy/AdvReac Type Severity Reaction Status Date / Time NSAIDS (Non-Steroidal Allergy Unknown BLISTERS; Verified 01/28/19 20:00 Anti-Inflamma PHOTOSENSITIVITY [NSAIDS (NON-STEROIDAL ANTI-INFLAMMA] Penicillins [PENICILLINS] Allergy Unknown HIVES Verified 01/28/19 20:00 gabapentin [GABAPENTIN] AdvReac Unknown tolerated Verified 01/28/19 20:00 well, reacted when dc'd; does not want to take NARCOTIC Allergy Unknown STATES Uncoded 01/28/19 20:00 SENSITIVITY Review of Systems Review of Systems All systems reviewed & are unremarkable except as noted in HPI and below Exam Vital Signs (past 8 hours): - 01/29/19 00:39 01/29/19 00:50 01/29/19 07:41 Temperature 99.2 F 99.1 F Pulse Rate 68 66 70 Respiratory Rate 16 14 19 Blood Pressure 117/82 116/73 Blood Pressure [Right Arm] 110/68 Pulse Oximetry 96 97 98 Oxygen Delivery Method Room Air Oxygen Flow Rate 0 Narrative Exam Narrative: Alert fatigued-appearing female lying in bed moving minimally. Pupils are equal and responsive to light and EOMI is intact. Bilateral lateral gaze nystagmus. Tympanic membranes are normal. No tragus tenderness. Oral mucosa is unremarkable. Neck is supple without adenopathy. Lungs are clear. Heart regular rate and rhythm. Abdomen is soft positive bowel sounds completely nontender she has no palpable rib tenderness. Extremities without cyanosis clubbing edema. Neurologic exam shows cranial nerves 2-12 are intact motor is 5/5 reflexes 2+ and symmetric [id number]-[id number]-oyap and qxlq-se-whih are normal. Significant nystagmus but did not ambulate. Psychologically anxious but otherwise interactive and appropriate Objective Labs Result Diagrams: 01/28/19 20:15 01/28/19 20:15 Labs: Laboratory Results - last 24 hr 01/28/19 01/28/19 01/28/19 20:15 20:15 20:15 WBC 9.9 RBC 4.33 Hgb 13.9 Hct 40.8 MCV 94.2 MCH 32.1 MCHC 34.1 RDW 13.2 Plt Count 230 Neut % (Auto) 79.7 H Lymph % (Auto) 12.9 L [place] % (Auto) 5.9 Eos % (Auto) 0.8 L Baso % (Auto) 0.7 Neut # (Auto) 7900 H Lymph # (Auto) 1300 [place] # (Auto) 600 Eos # (Auto) 100 Baso # (Auto) 100 Sodium 140 Potassium 3.9 Chloride 103 Carbon Dioxide 28 BUN 17 Creatinine 0.60 Estimated GFR > 60.0 BUN/Creatinine Ratio 28.3 H Glucose 104 H Calcium 9.4 Magnesium 1.9 Total Bilirubin 0.8 AST 26 ALT 13 Alkaline Phosphatase 80 Troponin I < 0.012 Total Protein 7.3 Albumin 4.3 Globulin 3.0 Albumin/Globulin Ratio 1.4 Amylase 115 H Lipase 198 Nasal Screen MRSA (PCR) 01/29/19 01:15 WBC RBC Hgb Hct MCV MCH MCHC RDW Plt Count Neut % (Auto) Lymph % (Auto) [place] % (Auto) Eos % (Auto) Baso % (Auto) Neut # (Auto) Lymph # (Auto) [place] # (Auto) Eos # (Auto) Baso # (Auto) Sodium Potassium Chloride Carbon Dioxide BUN Creatinine Estimated GFR BUN/Creatinine Ratio Glucose Calcium Magnesium Total Bilirubin AST ALT Alkaline Phosphatase Troponin I Total Protein Albumin Globulin Albumin/Globulin Ratio Amylase Lipase Nasal Screen MRSA (PCR) Negative for mrsa Assessment & Plan Assessment & Plan narrative: Problem 1. Severe dizziness probably secondary to labyrinthitis although possible CVA is vertebral system is possible. Neurologic exam appears otherwise intact. MRI today. Continue meclizine. And Zofran Will add Valium 2 mg re-evaluate later today. Discussed with patient questions answe red Problem 2. Dehydration. Seems to be better but will continue IV hydration. Readdress later today. Problem 3. Anxiety. Moderately impacted stool. Will being something that will need to be followed as an outpatient by her usual provider. Code status full Disposition. Will see how she responds to Valium see what the MRI shows and follow from there. Hopefully home this evening if not tomorrow morning. Quality VTE Deep Vein Thrombosis/Pulmonary Embolism Present on Admission: No
[2019-01-29] MEDS: diazePAM 2 MG TABLET PO ×3 (09:13→18:00)
--- NOTE | 2019-01-29 09:21 | CM.DANOTE ---
DCP: Case received, EMR reviewed and met with patient. Introduced self and role. Was able to converse with patient and spouse to obtain baseline health information. DCP assessment completed with information currently available. Patient is a 48 year old female who admitted yesterday evening to the care of the hospitalist team. PCP: TA Mcgrath. Payer: confirmed: [facility] Patient came to the hospital via family vehicle secondary to dizziness and nausea/vomiting. Patient is here for some IV hydration for vertigo. Met with patient in her room, , Matthias, at bedside. Patient stated, she is starting to feel better since the drugs have kicked in. She mentioned that she is having an MRI today. Patient stated, she had never had these symptoms before.. Patient is independent at home, and is employed through the [employer] in [place]. She resides here in [place] with her spouse, Matthias. P: DCP to continue to follow. Patient should be able to go home when tests are complete, and deemed medically stable. Nicki Hebert RN/Cardiac Surgeon
--- NOTE | 2019-01-29 10:26 | PC.NURSE ---
Addendum entered by Nimisha Jo R.N. 01/29/19 14:17: Pt has tolerated meal well. Medicated with zofran and valium. IVF continue. MRI results to Dr Caban. Await disposition. Addendum entered by Nimisha Jo R.N. 01/29/19 11:54: 1120-Return from MRI, assisted to BR, IVF infusing. Nausea improved. 1040-Over to MRI Original Note: Am shift Pt is A/o x4, reports nausea with any movement this AM. Medicated with Zofran. No emesis since admission, at bedside. Lungs are clear, VSS. Denies pain to ear, except with certain movements to L side. 1PA to BR, for support/ IV management.
[2019-01-29 15:50] VITALS: BP 110/68; PULSE 65; RESP 16; TEMP 36.9; O2SAT 98
[2019-01-29 16:35] VITALS: O2SAT 98
--- NOTE | 2019-01-29 17:29 | P.PN_ITS ---
Subjective Date Patient Seen: 01/29/19 Time Patient Seen: 17:26 Interval history: Patient feeling better with diazepam. Up moving around no vomiting. Discussed with radiologist. Right vertebral artery appears to have flap with no clots. Decreased flow. Discussed with Dr. [facility] neurologist. His recommendation was an aspirin a day. Otherwise no complaints or problems did have some blood apparently on her bed which she found from previous patient Exam Vital Signs (past 8 hours): - 01/29/19 15:50 01/29/19 16:35 Temperature 98.4 F Pulse Rate 65 Respiratory Rate 16 Blood Pressure 110/68 Pulse Oximetry 98 98 Oxygen Delivery Method Room Air Oxygen Flow Rate 0 Narrative Exam Narrative: Alert female sitting in bed mildly anxious but otherwise no acute distress Objective Labs Result Diagrams: 01/28/19 20:15 01/28/19 20:15 Labs: Laboratory Results - last 24 hr 01/28/19 01/28/19 01/28/19 20:15 20:15 20:15 WBC 9.9 RBC 4.33 Hgb 13.9 Hct 40.8 MCV 94.2 MCH 32.1 MCHC 34.1 RDW 13.2 Plt Count 230 Neut % (Auto) 79.7 H Lymph % (Auto) 12.9 L [place] % (Auto) 5.9 Eos % (Auto) 0.8 L Baso % (Auto) 0.7 Neut # (Auto) 7900 H Lymph # (Auto) 1300 [place] # (Auto) 600 Eos # (Auto) 100 Baso # (Auto) 100 Sodium 140 Potassium 3.9 Chloride 103 Carbon Dioxide 28 BUN 17 Creatinine 0.60 Estimated GFR > 60.0 BUN/Creatinine Ratio 28.3 H Glucose 104 H Calcium 9.4 Magnesium 1.9 Total Bilirubin 0.8 AST 26 ALT 13 Alkaline Phosphatase 80 Troponin I < 0.012 Total Protein 7.3 Albumin 4.3 Globulin 3.0 Albumin/Globulin Ratio 1.4 Amylase 115 H Lipase 198 Nasal Screen MRSA (PCR) 01/29/19 01:15 WBC RBC Hgb Hct MCV MCH MCHC RDW Plt Count Neut % (Auto) Lymph % (Auto) [place] % (Auto) Eos % (Auto) Baso % (Auto) Neut # (Auto) Lymph # (Auto) [place] # (Auto) Eos # (Auto) Baso # (Auto) Sodium Potassium Chloride Carbon Dioxide BUN Creatinine Estimated GFR BUN/Creatinine Ratio Glucose Calcium Magnesium Total Bilirubin AST ALT Alkaline Phosphatase Troponin I Total Protein Albumin Globulin Albumin/Globulin Ratio Amylase Lipase Nasal Screen MRSA (PCR) Negative for mrsa Assessment & Plan Assessment & Plan narrative: Patient with possible vertebral dissection which I discussed with neurologist actually clinically better today at least this afternoon. We discussed limited activity will need Neurology counseled as outpatient but did not feel as if she needed transferred at this time. Will start an aspirin a day. Will continue diazepam. If stable will discharge tomorrow and get set up with outpatient Neurology hopefully soon as possible. Patient understands expectations discussed questions answered as far as blood exposure as per protocol for hospital. Seems very limited Quality VTE Deep Vein Thrombosis/Pulmonary Embolism Present on Admission: No
[2019-01-29 17:49] LABS: Alanine Aminotransferase 17 IU/L (9-52)
[2019-01-29 18:23] LABS: Hepatitis B Surface Antigen NEGATIVE s/c (NEGATIVE)
[2019-01-29 18:40] LABS: HIV 1 & 2 Ab/Ag 4th Gen Combo NEGATIVE (NEGATIVE); Hep C Virus Ab w/Reflex Quant NEGATIVE s/c (NEGATIVE)
[2019-01-29 20:05] VITALS: BP 116/69; PULSE 73; RESP 18; TEMP 37.4
[2019-01-29] MEDS: ASPIRIN EC 81 MG TABLET PO (20:23)
[2019-01-30] VITALS: BP 107/63; PULSE 66; RESP 15; TEMP 37; O2SAT 96
[2019-01-30] MEDS: SODIUM CHLORIDE 0.9% 1,000 ML 125 ML IV (02:04)
[2019-01-30 04:30] VITALS: BP 124/70; PULSE 67; RESP 17; TEMP 36.6; O2SAT 97
[2019-01-30] MEDS: MECLIZINE HCL 12.5 MG TABLET 25 MG PO (06:03)
--- NOTE | 2019-01-30 06:21 | PC.NURSE ---
NOC Shift: Pt slept well through night, OOB to the bathroom with 1 PA standby pt denies dizziness when up walking, only slightly felt when sitting up from lying flat. Denies nausea thru shift. VSS, off tele. Neurologically intact no deficits noted. Remains on IVF's. Possible discharge today w/outpatient Neurology consult. Discussed possible soft collar usage for comfort on discharge.
[2019-01-30] MEDS: ONDANSETRON 4 MG/2 ML INJ IV (07:35)
--- NOTE | 2019-01-30 08:16 | PM.DS.1 ---
History of Present Illness Chief complaint: dizziness with N/V x2 days Narrative: Patient is a 48-year-old female who presented with 3 day history of onset of dizziness. Quite severe. Vomiting persistently. Apparently patient started about a week ago after returning from a mountain bike trip. Thought maybe she had contracted food poisoning because the next day she started throwing up. Seemed to be better on Tuesday and then Tuesday started feeling sick again. No fevers or chills. Persistent vomiting. No lightheadedness dizziness or other change. Seemed to be slowly getting better until Tuesday night when she developed acute onset of severe spinning. Basically any time she moved her head she would throw up. Seemed to not get better and actually maybe got a little worse. Was unable to keep anything doubt presented to emergency room. Never had anything like this before. No one else has been sick. 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 No other change. Patient has not had a headache. Visual change. Numbness tingling. No weakness. No motor changes. No change in bowel movements no urinary changes. If it would be for the dizziness she would feel too bad. Otherwise no significant change. Otherwise she has been relatively healthy. Has some chronic left rib pain. Has history of IBS. Has not been significantly active recently. No other changes. Patient has been under a lot of stress. Both at work and at home. Seems to be really getting quite bad recently. No other changes. Has felt a little bit out of control. No other complaint. Patient does have a history of some ear problems but primarily otitis externa, no inner ear issues. Past medical history postmenopausal, IBS, multiple joint issues Past surgical history back surgery x2 1109 and 1209, bilateral knee surgeries, labral tear surgical repair hip 15 and 17, exploratory pelvic bladder surgery 23 years of age, laparoscopic endometriosis and hemorrhage cyst 2/18 Family history Father hyperlipidemia mother cervical cancer has had a sibling suicide, paternal grandfather CVA, maternal grandmother CVA although alcohol and smoking heavily. Social history , Education BA, currently employed Discharge Providers Date of admission: 01/28/19 23:28 Discharge Date: 01/30/19 Primary care physician: TA Mcgrath Discharge provider: Clarence Miller MD Summary Discharge Diagnosis: Severe vertigo Right vertebral artery dissection Dehydration Hospital Course: Severe vertigo. Patient was admitted. Placed on meclizine and Zofran. Did not seem to completely control symptoms and 2 mg of Valium went added and patient had excellent control still has some vertigo but is able to set up has not had any vomiting and was moving around the room. [place] comfortable going home and will go home with a current medicines. Will follow up with her usual PCP on Tuesday. Right vertebral artery dissection. Discussed with [facility] Dr. Trivedi. With no evidence of significant clot and clinically doing well with no evidence of stroke recommendation was for aspirin a day. Patient has allergy to aspirin and after discussion with pharmacist we elected to start Plavix. Will continue as outpatient. We discussed can get up to move to her usual things without extending her neck but no biking hiking kayaking or other extreme sports. At this point will use a C-collar and will discharge to home. Discussed with her usual primary care will be sent to a neurologist next week. She will call if worsening or change. Presumed cause of vertigo. Will discontinue her estrogen and progesterone. Dehydration. Resolved with IV hydration. Doing well. Follow up as needed. Status at Discharge Cognitive/behavioral status at discharge: oriented Functional status at discharge: independent ambulation Overall status at discharge: patient is progressing back to baseline Time Spent with Patient Greater than 30 minutes Exam Vital Signs (past 8 hours): - 01/30/19 04:30 Temperature 97.9 F Pulse Rate 67 Respiratory Rate 17 Blood Pressure 124/70 Pulse Oximetry 97 Oxygen Delivery Method Room Air Oxygen Flow Rate 0 Objective Labs Result Diagrams: 01/28/19 20:15 01/28/19 20:15 Labs: Laboratory Results - last 24 hr 01/29/19 01/29/19 17:30 17:30 ALT 17 Hep Bs Antigen Negative Hepatitis C Antibody Negative HIV 1&2 Ab/P24 Ag 4thGn Negative Discharge Plan Discharge Plan Patient Disposition: Home Discharge Med Rec/Prescriptions Prescriptions: New meclizine 12.5 mg Tablet 25 mg PO Q6HR Qty: 90 RF: 1 clopidogrel 75 mg Tablet 75 mg PO DAILY Qty: 30 RF: 2 diazepam 2 mg Tablet 2 mg PO Q4HR PRN (Reason: dizzyness) Qty: 60 RF: 1 Continued multivitamin [Multiple Vitamins] 1 EACH tablet 1 tab PO QDAY Qty: 0 RF: 0 fluticasone propionate 16 GM spray,suspension 1 spray Intranasal SEE INSTRUCTIONS Qty: 16 RF: 2 Changed ondansetron 8 mg tablet,disintegrating 4 mg PO BID PRN (Reason: nausea and vomiting) Qty: 30 RF: 1 Discontinued [TURMERIC] Qty: 0 RF: 0 [ARNICA] Qty: 0 RF: 0 [BROMOLINE] Qty: 0 RF: 0 Follow up/Referrals: Karen Miller ARNP [Primary Care Provider] - 02/06/19 Clarence Miller MD [Physician] - Provider Discharge Instructions Diet: Diet as Tolerated Activity: Patient okay to walk. No biking or mother significant activities. Keep neck straight. Wear brace. Follow up as scheduled. Call if worsening or change. Discharge Data Primary Care Provider: Karen Miller Attending Provider: Sachi Nunez Admit Date/Time: 01/28/19 23:28 Quality VTE Deep Vein Thrombosis/Pulmonary Embolism Present on Admission: No
[2019-01-30 08:19] VITALS: O2SAT 98
[2019-01-30] MEDS: diazePAM 2 MG TABLET PO (09:11)
[2019-01-30] MEDS: CLOPIDOGREL 75 MG TABLET PO (09:12)
--- NOTE | 2019-01-30 09:16 | PC.NURSE ---
prepared for discharge removed iv access and allowed pt to be up ad marco- she is ambulating steady and using br solo this am- both bowel and bladder emptied- soft cervical collar in place- follow up scheduled
== END 2019-01-30 09:31 | disposition home or self-care (01) ==
LOC: ED 23:23 → AC 23:29 → ICU 01-29 00:12
PROVIDERS: Nurse Practitioner Family; Admitting Provider Family Medicine; Emergency Provider Emergency Medicine; Family Provider Internal Medicine; PCP Internal Medicine; Visit Provider Family Medicine
DX: R42 Dizziness and giddiness (principal); R11.2 Nausea with vomiting, unspecified; I77.74 Dissection of vertebral artery; R10.13 Epigastric pain; E86.0 Dehydration; F41.9 Anxiety disorder, unspecified
CPT/HCPCS: 36591; 70450; 70548; 70553; 71045; 80053; 82150; 83690; 83735; 84484; 85025; 87797; 93005; 96361; 96374; 96375; 96376; 99283; 99285; G0378; A9579; C9113; J1650; J2405

== ENCOUNTER → 2019-03-02 08:25 | Outpatient (CLI) | payer OTHER, SELFPAY ==
[2019-03-02 09:34] LABS: Erythrocyte Sedimentation Rate 4 MM/HR (0-20)
[2019-03-02 10:10] LABS: C-Reactive Protein Quant < 0.5 mg/dL (<1.0)
[2019-03-06 00:16] LABS: ANA Screen, IFA NEGATIVE (NEGATIVE)
[2019-03-06 20:50] LABS: ANCA Screen NEGATIVE (NEGATIVE)
== END ==
PROVIDERS: Family Provider Internal Medicine; PCP Internal Medicine; Visit Provider Psychiatry & Neurology Neurology
DX: I77.74 Dissection of vertebral artery (principal)
CPT/HCPCS: 36415; 85651; 86021; 86038; 86140

== ENCOUNTER → 2019-04-13 06:40 | Outpatient (CLI) | payer OTHER, SELFPAY ==
--- NOTE | 2019-04-13 | DI.MRI.S_ITS ---
PROCEDURE: MR ANGIO NECK W CON INDICATIONS: DISSECTION OF VERTEBRAL ARTERY TECHNIQUE: Axial and sagittal TruFISP through the neck. Coronal dynamic MRA after the administration of contrast in the arterial and venous phases, with rotating 3-dimensional maximum intensity projection (MIP) reformats constructed from subtraction images. COMPARISON: [facility], MR, MR ANGIO HEAD WO CON, 04/13/2019, 7:14. [facility], CT, CT HEAD/BRAIN WO CON, 01/28/2019, 20:47. [facility], MR, MR STROKE, 01/29/2019, 10:48. FINDINGS: Image quality: Excellent. Carotid system: Great vessels demonstrate a conventional anatomy as they arise from the aortic arch. The origins of the common carotid arteries appear normal. The calibers and courses of the common carotid arteries are likewise normal. The carotid bifurcations appear normal bilaterally. The internal carotid arteries are widely patent up to the [place] of [place]. Posterior circulation: Dominant left vertebral artery, which is normal in caliber and patent. Right vertebral artery demonstrates diminished flow signal which could be sequelae of dissection or congenitally hypoplastic. Vertebral arteries join to form a normal appearing basilar artery. Miscellaneous: Subclavian arteries are patent throughout. Pre-contrast images through the neck demonstrate no soft tissue abnormalities. IMPRESSION: 1. Right vertebral artery demonstrates diminished flow signal which could be sequelae of dissection or congenitally hypoplastic. To rule out dissection, CT neck angiogram is recommended. 2. Dominant left vertebral artery, which is normal in caliber and fully patent. 3. Normal carotid arteries bilaterally. Any quantitative measurements of stenosis were performed using NASCET criteria. Dictated by: Talib Thacker M.D. on 04/13/2019 at 10:38 Approved by: Talib Thacker M.D. on 04/13/2019 at 10:46
--- NOTE | 2019-04-13 | DI.MRI.S_ITS ---
PROCEDURE: MR ANGIO HEAD WO CON INDICATIONS: Dissection of vertebral artery TECHNIQUE: Noncontrast axial 3-D [id number] MR angiogram, with 3-dimensional maximum intensity projection (MIP) reformats of the internal carotid arteries and posterior circulation then performed. COMPARISON: [facility], MR, MR ANGIO NECK W CON, 04/13/2019, 7:14. [facility], MR, MR STROKE, 01/29/2019, 10:48. FINDINGS: Image quality: Excellent. Anterior circulation: Intracranial internal carotid arteries demonstrate normal size and intraluminal flow signal. The flow within the paired anterior cerebral arteries is normal and symmetric. The flow within the middle cerebral arteries is normal and symmetric. The anterior communicating artery is seen. No stenoses, occlusions, or aneurysms. Posterior circulation: Dominant left vertebral artery. Visualized portions of the vertebral arteries demonstrate normal caliber, and join to form a normal appearing basilar artery. The flow within the posterior cerebral arteries is normal and symmetric. origin of right posterior cerebral artery, a congenital anatomic variant. No stenoses, occlusions, or aneurysms. IMPRESSION: 1. Dominant left vertebral artery which is patent. 2. The right vertebral artery is small, which may be caused by proximal dissection or congenitally hypoplastic. 3. No high-grade stenoses, occlusion or aneurysm in anterior or posterior circulations. Dictated by: Talib Thacker M.D. on 04/13/2019 at 10:00 Transcribed by: HUE on 04/13/2019 at 10:02 Approved by: Talib Thacker M.D. on 04/13/2019 at 10:49
== END ==
PROVIDERS: Family Provider Internal Medicine; PCP Internal Medicine; Visit Provider Psychiatry & Neurology Neurology
DX: I77.74 Dissection of vertebral artery (principal)
CPT/HCPCS: 70544; 70548; A9579

== ENCOUNTER → 2019-04-20 11:27 | Outpatient (CLI) | payer OTHER, SELFPAY ==
--- NOTE | 2019-04-20 | DI.CT.S_ITS ---
PROCEDURE: CT ANGIO NECK INDICATIONS: 3 month follow up study from mri TECHNIQUE: After the administration of intravenous contrast, 1.5 mm axial sections acquired from the aortic arch to the [place] of [place]. Maximum intensity projection (MIP) reformats were then performed. COMPARISON: [facility], MR, MR ANGIO NECT W CON, 04/13/2019, 7:14. [facility], MR, MR STROKE, 01/29/2019, 10:48. [facility], MR, MR ANGIO HEAD WO CON, 04/13/2019, 7:14. FINDINGS: Image quality: Excellent. Carotid system: The great vessels demonstrate a conventional anatomy as they arise from the aortic arch. The origins of the common carotid arteries appear patent. The common carotid arteries demonstrate normal calibers and courses. The bifurcation regions appear normal bilaterally. The internal carotid arteries demonstrate normal caliber and course. Posterior circulation: The origins of the vertebral arteries appear patent. The left vertebral artery is dominant to the right. The right vertebral artery demonstrates low caliber throughout its course, although particularly distally. No findings of dissection are seen throughout the right vertebral artery. They join to form a normal appearing basilar artery. Soft tissues: Visualized neck soft tissues demonstrate no suspicious abnormalities. Thyroid gland demonstrates no significant CT abnormality. Bones: No suspicious bony lesions. Visualized cervical spine appears normally aligned. IMPRESSION: Small caliber right vertebral artery again seen, without findings of dissection. The appearance is similar to prior angiograms. Any quantitative stenosis measurements were performed using the NASCET criteria. Dictated by: Tirso Simpson M.D. on 04/20/2019 at 12:14 Approved by: Tirso Simpson M.D. on 04/20/2019 at 12:18
== END ==
PROVIDERS: PCP Internal Medicine; Visit Provider Psychiatry & Neurology Neurology
DX: R90.89 Other abnormal findings on diagnostic imaging of central nervous system (principal)
CPT/HCPCS: 70498; Q9967

== ENCOUNTER → 2019-05-31 18:06 | Outpatient (CLI) | payer OTHER, SELFPAY ==
[2019-05-31 18:59] LABS: Influenza A - CEPHEID Flu A NEGATIVE (NEGATIVE); Influenza B - CEPHEID Flu B NEGATIVE (NEGATIVE)
== END ==
PROVIDERS: PCP Internal Medicine; Visit Provider Nurse Practitioner
DX: R05 Cough (principal); J02.9 Acute pharyngitis, unspecified
CPT/HCPCS: 87070; 87502

== ENCOUNTER 2020-01-25 10:26 | Emergency (ER) | payer OTHER, SELFPAY ==
[2020-01-25 10:42] VITALS: BP 154/85; PULSE 83; RESP 18; TEMP 36.6; O2SAT 100; BMI 22.4
--- NOTE | 2020-01-25 11:25 | DI.US.S_ITS ---
PROCEDURE: US PELVIC COMPLETE INDICATIONS: LEFT LOWER QUADRANT PAIN STONE VS OV CYST / TORSION TECHNIQUE: Real-time scanning was performed of the pelvic organs, with image documentation. Additional endovaginal scanning was necessary due to incomplete visualization of the adnexal and endometrial structures by transabdominal scanning. COMPARISON: [facility], , PELVIC COMPLETE, 10/26/2018, 7:19. [facility], , PELVIC COMPLETE, 08/08/2017, 11:25. FINDINGS: Transabdominal scanning: Limited scanning through the kidneys shows no hydronephrosis. No pathologic free abdominal or pelvic fluid. There is a right anterior intramural 2.4 x 2.7 x 1.8 cm fibroid. Endovaginal scanning: Uterus: Uterus is normal in size at 2.3 x 4.5 x 7.1 cm. The endometrium measures 2.7 mm in combined thickness. Ovaries: The ovaries are normal in size and echotexture, free of evidence of recently ruptured cyst or ovarian torsion. IMPRESSION: Normal examination, source of pain not identified. Note is made of a small right anterior intramural uterine fibroid measuring only 2.7 cm in maximal dimension. Dictated by: Ousmane Hernandez M.D. on 01/25/2020 at 12:16 Approved by: Ousmane Hernandez M.D. on 01/25/2020 at 12:19
[2020-01-25] MEDS: ONDANSETRON 4 MG/2 ML INJ IV (11:43)
[2020-01-25] MEDS: MORPHINE 2 MG/ML INJ IV (11:43)
[2020-01-25 11:44] LABS: Add Manual Diff / Slide Review NO; Basophils Absolute Auto 100 /uL (0-100); Basophils Percent Auto 0.8 % (0-2); Eosinophils Absolute Auto 0 /uL (0-450); Eosinophils Percent Auto 0.3 % (2-4); Hematocrit 41.3 % (36-46); Hemoglobin 13.9 g/dL (12.0-16.0); Lymphocytes Absolute Auto 1500 /uL (1100-4500); Lymphocytes Percent Auto 19.3 % (25-40); Mean Corpuscular HGB Conc 33.6 % (30-36); Mean Corpuscular Hemoglobin 31.1 PG (26-34); Mean Corpuscular Volume 92.6 fL (80-100); Monocytes Absolute Auto 400 /uL (0-900); Monocytes Percent Auto 4.8 % (3-14); Neutrophils Absolute Auto 5800 /uL (1500-7000); Neutrophils Percent Auto 74.8 % (50-75); Platelet Count 238 X10^3/uL (150-400); Red Blood Cell Count 4.45 X10^6/uL (4.0-5.2); Red Cell Distribution Width 12.9 % (11.6-14.8); White Blood Cell Count 7.8 X10^3/uL (4.5-11.0)
--- NOTE | 2020-01-25 11:58 | ED_ITS ---
HPI - Abdominal Pain <TA Salazar - Last Filed: 01/25/20 14:36> General Chief Complaint: Abdominal Pain Stated Complaint: Sharp Left Ovarian pain, Back pain Time Seen by Provider: 01/25/20 11:05 Source: patient Mode of arrival: Family Vehicle Limitations: no limitations History of Present Illness HPI narrative: This is a 49-year-old female, nonsmoker, who has history of ruptured ovarian cyst and endometriosis follow-up with surgery [address] Marroquin, interstitial cystitis, and right vertebral artery dissection presents to ED with left lower quadrant pain which radiating down to groin region and flank with nausea, fatigue, abdominal bloatedness. Patient reports she had last LMP in August 2018 and noticed returned vaginal spotting that lasted for a couple of hours which started 5 days ago when she was in [facility]. Since patient had right vertebral artery dissection she is very sensitive to dehydration and easily gets heat exhaustion with symptoms of nausea and vomiting and had hydrated herself well. Patient occasionally has night sweats and hot flashes since August 2018. Patient denies chest pain, breathing difficulty, dizziness. Patient reports she has auto immune issues and food sensitivities. Patient reports she usually has diarrhea but appears to be little bit more frequent than usual but denies blood in her stool. Patient felt feverish but when she majors temperature there was note fever. She denies chills. Patient reports abdominal pain is as in cramping and rates as 7 to 8/10. Patient was on hormone replacement therapy prior to vertebral dissection and she had stopped January 2019. Patient denies urinary symptoms. Patient reports new sexual partner and would like to get test done for STIs. Patient was evaluated on 01/24/[address] Suh and Medical record was obtained from [place] [facility]. Patient reports pelvic ultrasound is scheduled on Tuesday but since patient is more consistent she is here today for an evaluation. Urine test and wet prep test were negative during yesterday's visit. Related Data Home Medications Medication Instructions Recorded Confirmed multivitamin [Multiple Vitamins] 1 tab PO QDAY #0 tab 03/31/16 05/31/19 Previous Rx's Medication Instructions Recorded fluticasone propionate 1 spray INTRANASAL SEE 04/07/17 INSTRUCTIONS #16 gm clopidogrel 75 mg PO DAILY #30 tab 01/30/19 diazepam 2 mg PO Q4HR PRN #60 tab 01/30/19 meclizine 25 mg PO Q6HR #90 tab 01/30/19 ondansetron 4 mg PO BID PRN #30 tab 01/30/19 Allergies Allergy/AdvReac Type Severity Reaction Status Date / Time NSAIDS (Non-Steroidal Allergy Unknown BLISTERS; Verified 01/25/20 10:48 Anti-Inflamma PHOTOSENSITIVITY [NSAIDS (NON-STEROIDAL ANTI-INFLAMMA] Penicillins [PENICILLINS] Allergy Unknown HIVES Verified 01/25/20 10:48 gabapentin [GABAPENTIN] AdvReac Unknown tolerated Verified 01/25/20 10:48 well, reacted when dc'd; does not want to take NARCOTIC Allergy Unknown STATES Uncoded 01/25/20 10:48 SENSITIVITY Review of Systems <TA Salazar - Last Filed: 01/25/20 14:36> Review of Systems Narrative: General: See HPI HEENT: Denies sinus pain, ear pain, sore throat, difficulty swallowing, dizziness. Respiratory: Denies dyspnea, cough, wheezing, hemoptysis, sputum. Cardiovascular: Denies chest pain, palpitations, orthopnea, edema. Gastrointestinal: See HPI : Denies dysuria, frequency, incontinence, hematuria, urinary retention. Musculoskeletal: Denies weakness, joint pain or bony pain. Skin: Denies rash, skin lesions, or other. Neurologic: Denies weakness, headache, numbness, change in speech, confusion, seizures, incoordination. Psychiatric: No concerning psychosocial issues. 12-point review of systems is negative except for those stated above. Patient History <TA Salazar - Last Filed: 01/25/20 14:36> Surgical History Status post discectomy Status post discectomy Status post knee surgery Status post knee surgery Status post knee surgery Status post laparoscopy Status post laparoscopy (07/18/17) Family History Father Age: 71 High cholesterol Social History household members: spouse Smoking Status: Former smoker Smoking Status: Former smoker alcohol intake frequency: a few times a week Substance Use Type: marijuana Exam <TA Salazar - Last Filed: 01/25/20 14:36> Narrative Exam Narrative: GEN: Alert, oriented x 3, well appearing and nourished, and in no acute distress. Head: Normal cephalic, atraumatic. No scalp or temporal tenderness, palpable mass or rash. EYES: Pupils are equal, round, and reactive to light and accommodation. Extraocular muscles are intact bilaterally. There is no subconjunctival hemorrhage, exudate and sclera non-icteric. ENT: earing grossly intact. Nose without bleeding, purulent discharge or deviation. Facial sinuses nontender to palpate. Mucous membrane moist, no mucosal lesion. Throat without erythema, tonsillar hypertrophy or exudate. Uvula in midline, airway patent. Neck: Trachea in midline. No JVD, non-tender without lymphadenopathy. No masses or thyroid megaly. Supple, non-tender and no meningeal signs. CARDIAC: Normal regular rate and rhythm without murmurs, gallops, or rubs. No chest wall tenderness. No peripheral edema, cyanosis or pallor. Capillary refill is less than 2 seconds. RESPIRATORY: Lungs are clear to auscultate bilaterally. No cough, wheezes, rales, or rhonchi. No stridor, respiratory distress, increase work of breathing, or accessary muscle used. ABD: Abdomen soft, non-distended. Left lower quadrant mildly tender to palpate. No guarding or rebound tenderness to palpate. Bowel sounds are normal in all 4 quadrants. There is no palpable masses or organomegaly. EXT: Full painless ROM of all extremities with no loss of sensation, strength, effusion or edema. SKIN: Warm, dry, normal color for patient. No erythema, lesions or rash over visible areas. BACK: Nontender without deformity or crepitance. No flank tenderness. NEUROLOGICAL: Alert and oriented to place, time and person. Sensation and motor function intact bilaterally. No facial droops, dysphasia. PSYCHIATRIC: Good judgement and reason, without hallucinations, abnormal affect or abnormal behaviors during the examination. Patient is not suicidal. Initial Vital Signs Initial Vital Signs: Vital Signs Temperature 97.9 F 01/25/20 10:42 Pulse Rate 83 01/25/20 10:42 Respiratory Rate 18 01/25/20 10:42 Blood Pressure 154/85 H 01/25/20 10:42 Pulse Oximetry 100 08/21/20 10:42 <Ines Cardoso DO - Last Filed: 01/26/20 07:12> Initial Vital Signs Initial Vital Signs: Vital Signs Temperature 97.9 F 01/25/20 10:42 Pulse Rate 83 01/25/20 10:42 Respiratory Rate 18 01/25/20 10:42 Blood Pressure 154/85 H 01/25/20 10:42 Pulse Oximetry 100 01/25/20 10:42 Scores <TA Salazar - Last Filed: 01/25/20 14:36> GCS [place] coma scale eye opening: Spontaneous Caro coma scale verbal response: Orientated [place] coma scale motor response: Obey commands Caro coma scale total score: 15 Course <TA Salazar - Last Filed: 01/25/20 14:36> Orders Ordered: Discontinued Medications Morphine Sulfate (Morphine) 2 mg IV NOW ONE Stop: 01/25/20 11:25 Last Admin: 01/25/20 11:43 Dose: 2 mg Documented by: MANFRED Ondansetron HCl (Zofran) 4 mg IV NOW ONE Stop: 01/25/20 11:25 Last Admin: 01/25/20 11:43 Dose: 4 mg Documented by: MAFNRED Vital Signs Vital signs: Vital Signs - 8 hr 01/25/20 10:42 01/25/20 13:27 Temperature 97.9 F Pulse Rate 83 70 Respiratory Rate 18 12 Blood Pressure 154/85 H 133/77 Pulse Oximetry 100 98 <Ines Cardoso DO - Last Filed: 01/26/20 07:12> Orders Ordered: Discontinued Medications Morphine Sulfate (Morphine) 2 mg IV NOW ONE Stop: 01/25/20 11:25 Last Admin: 01/25/20 11:43 Dose: 2 mg Documented by: MANFRED Ondansetron HCl (Zofran) 4 mg IV NOW ONE Stop: 01/25/20 11:25 Last Admin: 01/25/20 11:43 Dose: 4 mg Documented by: MANFRED Vital Signs Vital signs: Vital Signs - 8 hr 01/25/20 10:42 01/25/20 13:27 Temperature 97.9 F Pulse Rate 83 70 Respiratory Rate 18 12 Blood Pressure 154/85 H 133/77 Pulse Oximetry 100 98 MDM - Abdominal Pain <Mor TA Bose - Last Filed: 01/25/20 14:36> Differential Diagnosis Differential diagnosis: Likely abdominal pain, calculus of kidney, diverticulitis, endometriosis and other (Pyelonephritis, UTI, ovarian cysts, ovarian torsion) Medical Records Attestation: I reviewed the patient's medical records. Lab Data Attestation: I reviewed the patient's lab results. Result diagrams: 01/25/20 11:38 01/25/20 11:38 Labs: Lab Results 01/25/20 01/25/20 01/25/20 Range/Units 11:38 11:38 11:57 WBC 7.8 (4.5-11.0) X10^3/uL RBC 4.45 (4.0-5.2) X10^6/uL Hgb 13.9 (12.0-16.0) g/dL Hct 41.3 (36-46) % MCV 92.6 (80-100) fL MCH 31.1 (26-34) PG MCHC 33.6 (30-36) % RDW 12.9 (11.6-14.8) % Plt Count 238 (150-400) X10^3/uL Neut % (Auto) 74.8 (50-75) % Lymph % (Auto) 19.3 L (25-40) % Sullivan % (Auto) 4.8 (3-14) % Eos % (Auto) 0.3 L (2-4) % Baso % (Auto) 0.8 (0-2) % Neut # (Auto) 5800 (1070-7448) /uL Lymph # (Auto) 1500 (0700-3513) /uL Sullivan # (Auto) 400 (0-900) /uL Eos # (Auto) 0 (0-450) /uL Baso # (Auto) 100 (0-100) /uL Sodium 138 (137-145) mmol/L Potassium 4.1 (3.4-5.1) mmol/L Chloride 105 (98-107) mmol/L Carbon Dioxide 28 (22-32) mmol/L BUN 12 (7-17) mg/dL Creatinine 0.65 (0.52-1.04) mg/dL Estimated GFR > 60.0 (>60) mL/min BUN/Creatinine Ratio 18.5 (6-22) Glucose 100 (70-100) mg/dL Calcium 9.6 (8.4-10.2) mg/dL Total Bilirubin 1.1 (0.2-1.3) mg/dL AST 39 H (14-36) IU/L ALT 22 (<35) IU/L Alkaline Phosphatase 101 (38-126) U/L Total Protein 7.8 (6.3-8.2) g/dL Albumin 4.7 (3.5-5.0) g/dL Globulin 3.1 (1.7-4.1) g/dL Albumin/Globulin Ratio 1.5 (1.0-2.8) Ur Chlamydia DNA (PCR) Not detected N gonorrhoeae DNA (PCR) Not detected Point of care testing: Point of Care Testing Test Results Negative Urine Dip Bedside Urine Glucose Negative Bedside Urine Bilirubin - Negative Bedside Urine Ketone - Negative Urine Specific [place] 1.005 Bedside Urine Occult Blood - Negative Bedside Urine pH 6.5 Bedside Urine Protein - Negative Bedside Urine Urobilinogen - Negative Bedside Urine Nitrite - Negative Bedside Urine Leukocytes - Negative Esterase Imaging Data US - CODING SUPPORT SPECIALIST: Radiologist's Impression: [place] [address] Ultrasound Report Signed Patient: Dasha Dunn RMR#: [id number] : 1970Acct:[id number] Age/Sex: 49 / FDate of Service: 01/25/20 Loc: ED Accession Number: [id number] Procedure: US pelvic complete Ordering Provider: Mor Bose PROCEDURE: US PELVIC COMPLETE INDICATIONS: LEFT LOWER QUADRANT PAIN STONE VS OV CYST / TORSION TECHNIQUE: Real-time scanning was performed of the pelvic organs, with image documentation. Additional endovaginal scanning was necessary due to incomplete visualization of the adnexal and endometrial structures by transabdominal scanning. COMPARISON: [facility], PELVIC COMPLETE, 10/26/2018, 7:19. [facility], PELVIC COMPLETE, 08/08/2017, 11:25. FINDINGS: Transabdominal scanning: Limited scanning through the kidneys shows no hydronephrosis. No pathologic free abdominal or pelvic fluid. There is a right anterior intramural 2.4 x 2.7 x 1.8 cm fibroid. Endovaginal scanning: Uterus: Uterus is normal in size at 2.3 x 4.5 x 7.1 cm. The endometrium measures 2.7 mm in combined thickness. Ovaries: The ovaries are normal in size and echotexture, free of evidence of r ecently ruptured cyst or ovarian torsion. IMPRESSION: Normal examination, source of pain not identified. Note is made of a small right anterior intramural uterine fibroid measuring only 2.7 cm in maximal dimension. Dictated by: Ousmane Hernandez M.D. on 01/25/2020 at 12:16 Approved by: Ousmane Hernandez M.D. on 01/25/2020 at 12:19 [facility] Narrative Medical decision making narrative: 49-year-old female who presents to ED with left lower quadrant pain radiating to groin and back which feels like when she had problem with right-sided ovarian ruptured cyst and endometriosis. Patient reports LMP was August of last year and she had 2 hour duration of vaginal spotting 5 days ago. Lab tests are assuring with no leukocytosis and within normal H&H. Urine test no indications for infection and urine test was negative. Physical exam with mild tenderness to palpate in left lower quadrant without CVA tenderness . Physical exam and urine test is not consistent with pyelonephritis. Ultrasound test on pelvic indicates no ovarian torsion or cysts, uterus in normal size with endometrium measuring 2.7 mm. There was a small right anterior intramural uterine fibroid measuring 2.7 cm. Patient reports pain and nausea has improved significantly after the medication- Zofran 4 mg and morphine 2 mg. Findings were shared with the patient and she reports relief. It is not clear of etiology of patient's pain and it may due to musculoskeletal strain. We discussed CT test of abdomen and pelvis to evaluate diverticulitis but at this time lab tests are assuring. Patient advised to arrange primary care physician and consider colonoscopy in the near future if patient has problem with food intolerance/sensitivity and frequent diarrhea. Patient deferred CT scan test at this time and strict return precautions were discussed with patient. Patient advised to use Tylenol and Zofran that she has as needed for discomfort and pain. Patient verbalized understanding and agreement with treatment plan. Waiting for GC/chlamydia urine PCR test results and patient informed will receive a phone call if she requires a treatment. These lab tests are negative and no treatment is required. <Ines Cardoso, - Last Filed: 01/26/20 07:12> Lab Data Labs: Lab Results 01/25/20 01/25/20 01/25/20 Range/Units 11:38 11:38 11:57 WBC 7.8 (4.5-11.0) X10^3/uL RBC 4.45 (4.0-5.2) X10^6/uL Hgb 13.9 (12.0-16.0) g/dL Hct 41.3 (36-46) % MCV 92.6 (80-100) fL MCH 31.1 (26-34) PG MCHC 33.6 (30-36) % RDW 12.9 (11.6-14.8) % Plt Count 238 (150-400) X10^3/uL Neut % (Auto) 74.8 (50-75) % Lymph % (Auto) 19.3 L (25-40) % Sullivan % (Auto) 4.8 (3-14) % Eos % (Auto) 0.3 L (2-4) % Baso % (Auto) 0.8 (0-2) % Neut # (Auto) 5800 (2664-4526) /uL Lymph # (Auto) 1500 (9544-4653) /uL Sullivan # (Auto) 400 (0-900) /uL Eos # (Auto) 0 (0-450) /uL Baso # (Auto) 100 (0-100) /uL Sodium 138 (137-145) mmol/L Potassium 4.1 (3.4-5.1) mmol/L Chloride 105 (98-107) mmol/L Carbon Dioxide 28 (22-32) mmol/L BUN 12 (7-17) mg/dL Creatinine 0.65 (0.52-1.04) mg/dL Estimated GFR > 60.0 (>60) mL/min BUN/Creatinine Ratio 18.5 (6-22) Glucose 100 (70-100) mg/dL Calcium 9.6 (8.4-10.2) mg/dL Total Bilirubin 1.1 (0.2-1.3) mg/dL AST 39 H (14-36) IU/L ALT 22 (<35) IU/L Alkaline Phosphatase 101 (38-126) U/L Total Protein 7.8 (6.3-8.2) g/dL Albumin 4.7 (3.5-5.0) g/dL Globulin 3.1 (1.7-4.1) g/dL Albumin/Globulin Ratio 1.5 (1.0-2.8) Ur Chlamydia DNA (PCR) Not detected N gonorrhoeae DNA (PCR) Not detected Point of care testing: Point of Care Testing Test Results Negative Urine Dip Bedside Urine Glucose Negative Bedside Urine Bilirubin - Negative Bedside Urine Ketone - Negative Urine Specific [place] 1.005 Bedside Urine Occult Blood - Negative Bedside Urine pH 6.5 Bedside Urine Protein - Negative Bedside Urine Urobilinogen - Negative Bedside Urine Nitrite - Negative Bedside Urine Leukocytes - Negative Esterase Discharge Plan Departure Patient Disposition: Home Clinical Impression: Abdominal pain Qualifiers: Abdominal location: left lower quadrant Qualified Code(s): R10.32 - Left lower quadrant pain Fibroid, uterine Qualifiers: Uterine leiomyoma location: intramural Qualified Code(s): D25.1 - Intramural leiomyoma of uterus Discharge Date/Time: 01/25/20 13:29 Instructions: DI for Uterine Fibroids, DI for Abdominal Pain-Adult Activity Restrictions/Additional Instructions: You have been diagnosed with [left lower quadrant abdominal pain. Ultrasound test does not show ovarian cyst or torsion. No hydronephrosis appreciated. However, small right anterior intramural uterine fibroid measuring 2.7 cm in maximal dimension. Urine does not indicate infection or . Blood tests are assuring. Will call you if GC-chlamydia test comes back positive which requires treatments]. What to do: *Take your medications as directed. You can take [id number] Tylenol for d iscomfort and Zofran (you have already) as needed for nausea. *Follow up with your primary care provider in 2-3 days, call for an appointment. Let them know you were seen in the ED and that we asked you to be seen in follow up. *Return to ED if you have any new, worsening, or concerning symptoms, such as [fever, worsening pain, chest pain, breathing difficulty, unable to tolerate fluids or any acute concerns]. Prescriptions: No Action multivitamin [Multiple Vitamins] 1 EACH tablet 1 tab PO QDAY Qty: 0 RF: 0 fluticasone propionate 16 GM spray,suspension 1 spray Intranasal SEE INSTRUCTIONS Qty: 16 RF: 2 meclizine 12.5 mg Tablet 25 mg PO Q6HR Qty: 90 RF: 1 clopidogrel 75 mg Tablet 75 mg PO DAILY Qty: 30 RF: 2 diazepam 2 mg Tablet 2 mg PO Q4HR PRN (Reason: dizzyness) Qty: 60 RF: 1 ondansetron 8 mg tablet,disintegrating 4 mg PO BID PRN (Reason: nausea and vomiting) Qty: 30 RF: 1 Referrals: [facility] [Outside] Marcelle Suh [Primary Care Provider] - <Ines Cardoso DO - Last Filed: 01/26/20 07:12> Cosign ED Attending Yannickature Attestation: I was immediately available in the department for consultation. Documentation has been reviewed. I agree with assessment and plan.
[2020-01-25 12:03] LABS: Alanine Aminotransferase 22 IU/L (<35); Albumin 4.7 g/dL (3.5-5.0); Albumin Globulin Ratio 1.5 (1.0-2.8); Alkaline Phosphatase 101 U/L (38-126); Aspartate Aminotransferase 39 IU/L (14-36); BUN Creatinine Ratio 18.5 (6-22); Bilirubin Total 1.1 mg/dL (0.2-1.3); Blood Urea Nitrogen 12 mg/dL (7-17); Calcium 9.6 mg/dL (8.4-10.2); Carbon Dioxide 28 mmol/L (22-32); Chloride 105 mmol/L (98-107); Estimated Glomerular Filt Rate > 60.0 mL/min (>60); Globulin 3.1 g/dL (1.7-4.1); Glucose 100 mg/dL (70-100); HEMOLYSIS 20 (0-50); Potassium 4.1 mmol/L (3.4-5.1); Sodium 138 mmol/L (137-145); Total Protein 7.8 g/dL (6.3-8.2)
[2020-01-25 13:27] VITALS: BP 133/77; PULSE 70; RESP 12; O2SAT 98
[2020-01-25 13:27] LABS: Urine N gonorrhoeae NOT DETECTED
[2020-01-25 14:01] LABS: Urine Chlamydia NOT DETECTED
== END 2020-01-25 13:29 | disposition home or self-care (01) ==
PROVIDERS: Emergency Provider Nurse Practitioner Family; PCP Student in an Organized Health Care Education/Training Program
DX: R10.32 Left lower quadrant pain (principal); D25.1 Intramural leiomyoma of uterus
CPT/HCPCS: 36415; 76830; 76856; 80053; 81003; 81025; 85025; 87491; 87591; 96374; 96375; 99284; J2270; J2405

== ENCOUNTER 2020-04-18 13:16 | Emergency (ER) | payer OTHER, SELFPAY ==
[2020-04-18] VITALS (12 sets, daily range): BP systolic 116–138; BP diastolic 77–92; PULSE 68–83; RESP 14–21; TEMP 37.1; O2SAT 96–100; BMI 21.9
--- NOTE | 2020-04-18 13:37 | PC.NURSE ---
Patient came into today with blue hands. She has cap refill less than two secs. Pulse is palpable on both hands radial. pulse ox is 06 % on RA.
[2020-04-18 14:10] LABS: Add Manual Diff / Slide Review NO; Basophils Absolute Auto 100 /uL (0-100); Basophils Percent Auto 0.8 % (0-2); Eosinophils Absolute Auto 0 /uL (0-450); Eosinophils Percent Auto 0.4 % (2-4); Hemoglobin 12.3 g/dL (12.0-16.0); Lymphocytes Absolute Auto 1200 /uL (1100-4500); Lymphocytes Percent Auto 16.8 % (25-40); Mean Corpuscular HGB Conc 34.1 % (30-36); Mean Corpuscular Hemoglobin 31.9 PG (26-34); Mean Corpuscular Volume 93.6 fL (80-100); Monocytes Absolute Auto 400 /uL (0-900); Monocytes Percent Auto 5.9 % (3-14); Neutrophils Absolute Auto 5500 /uL (1500-7000); Neutrophils Percent Auto 76.1 % (50-75); Platelet Count 229 X10^3/uL (150-400); Red Blood Cell Count 3.85 X10^6/uL (4.0-5.2); Red Cell Distribution Width 12.9 % (11.6-14.8); White Blood Cell Count 7.2 X10^3/uL (4.5-11.0)
--- NOTE | 2020-04-18 14:22 | ED.EXTPRO ---
HPI - Extremity Problem General Chief complaint: Extremity Problem,Nontraumatic Stated complaint: blue hands Time Seen by Provider: 04/18/20 13:48 Source: patient Mode of arrival: Ambulatory Limitations: no limitations History of Present Illness HPI Narrative: The patient is a 49-year-old female with history of right-sided vertebral artery dissection presenting today with sudden onset of blue hands. She is quite active running ultra marathons however today she went on a quick 15 minutes walk around 6:00 a.m.. At noon she noticed that her hands on the palmar side were blue. It seems to come and go. She denies touching anything. They are not cold they are warm. She denies any weakness. His seems to be worse on the right than the left. She denies any chest pain shortness of breath dizziness lightheadedness. She does have chronic ongoing neck pain, in fact she had an image done last week with her orthopedic surgeon Dr. Garcia. (currently looking for those results). She states she is not taking any supplements she has not touched her cleaned anything no contact with any chemicals. She states that she may have possible connective tissue disorder, and is currently being worked up for that. Related Data Home Medications Medication Instructions Recorded Confirmed multivitamin [Multiple Vitamins] 1 tab PO QDAY #0 tab 03/31/16 05/31/19 Previous Rx's Medication Instructions Recorded fluticasone propionate 1 spray INTRANASAL SEE 04/07/17 INSTRUCTIONS #16 gm clopidogrel 75 mg PO DAILY #30 tab 01/30/19 diazepam 2 mg PO Q4HR PRN #60 tab 01/30/19 meclizine 25 mg PO Q6HR #90 tab 01/30/19 ondansetron 4 mg PO BID PRN #30 tab 01/30/19 Allergies Allergy/AdvReac Type Severity Reaction Status Date / Time NSAIDS (Non-Steroidal Allergy Unknown BLISTERS; Verified 04/18/20 13:30 Anti-Inflamma PHOTOSENSITIVITY [NSAIDS (NON-STEROIDAL ANTI-INFLAMMA] Penicillins [PENICILLINS] Allergy Unknown HIVES Verified 04/18/20 13:30 gabapentin [GABAPENTIN] AdvReac Unknown tolerated Verified 04/18/20 13:30 well, reacted when dc'd; does not want to take NARCOTIC Allergy Unknown STATES Uncoded 01/25/20 10:48 SENSITIVITY Review of Systems Review of Systems ROS Unobtainable: All systems reviewed & are unremarkable except as noted in HPI and below Constitutional Constitutional: Denies chills, Denies fever(s), Denies lethargy and Denies weakness Eyes Eyes: Denies change in vision, Denies eye discharge, Denies irritation and Denies loss of vision Cardiovascular Cardiovascular: Reports acrocyanosis, Denies dyspnea and Denies dyspnea on exertion Respiratory Respiratory: Denies cough, Denies dyspnea, Denies dyspnea on exertion and Denies wheezing Gastrointestinal Gastrointestinal: Denies abdominal pain, Denies change in bowel habits, Denies diarrhea, Denies nausea and Denies vomiting Musculoskeletal Musculoskeletal: Denies abnormal gait, Denies myalgias and Denies muscle cramps Integumentary/Breasts Skin/Breast: Denies pruritus, Denies erythema, Denies rash and Denies wounds Neurologic Neurologic: Denies abnormal gait, Denies loss of vision and Denies weakness Allergic/Immunologic Allergic/Immunologic: Denies wheezing Patient History Medical History Vertebral artery dissection (Acute) Surgical History Status post discectomy Status post discectomy Status post knee surgery Status post knee surgery Status post knee surgery Status post laparoscopy Status post laparoscopy (07/18/17) Family History Father Age: 72 High cholesterol Social History household members: spouse Smoking Status: Former smoker Smoking Status: Former smoker alcohol intake frequency: a few times a week Substance Use Type: marijuana Exam Initial Vital Signs Initial Vital Signs: Vital Signs Temperature 98.8 F 04/18/20 13:30 Pulse Rate 82 04/18/20 13:30 Respiratory Rate 14 04/18/20 13:30 Blood Pressure 136/82 04/18/20 13:30 Pulse Oximetry 97 04/18/20 13:30 GENERAL: Well-appearing, well-nourished and in no acute distress. HEENT: Head atraumatic,EOMI, pupils reactive, face symmetric, moist mucous membranes CARDIOVASCULAR: Regular rate and rhythm without murmurs, rubs or gallops. RESPIRATORY: Breath sounds equal bilaterally, no wheezes rales or rhonchi. ABDOMEN: Soft, nontender. Normoactive bowel sounds all 4 quadrants. No guarding or rebound. EXTREMITIES: Normal range of motion, no clubbing or edema. Neurovascularly intact NEUROLOGICAL: Alert and oriented x4.Normal gait and speech. SKIN: Hands are warm. She has some obvious bluish discoloration to the palmar sides of her hands bilaterally but significantly more on the right. Not noted on the dorsal side good strong radial pulses cap refill less than 2 seconds. Blanchable. Course Orders Ordered: ED Orders 04/18/20 14:02 Complete Blood Count AUTO DIFF Stat Comprehensive Metabolic Panel Stat D Dimer Stat Lipase Stat Partial Thromboplastin Time Stat Prothrombin Time INR Stat Troponin & CK Cardiac Panel Stat 04/18/20 14:18 Arterial Blood Gas Stat C-Reactive Protein Quant Stat Erythrocyte Sedimentation Rate Stat Vital Signs Vital signs: Vital Signs - 8 hr 04/18/20 13:30 04/18/20 13:50 04/18/20 14:00 Temperature 98.8 F Pulse Rate 82 79 75 Respiratory Rate 14 21 18 Blood Pressure 136/82 138/79 Pulse Oximetry 97 97 97 MDM - Extremity (Nontraumatic) Lab Data Result diagrams: 04/18/20 14:02 04/18/20 14:02 Labs: Lab Results 04/18/20 04/18/20 04/18/20 Range/Units 14:02 14:02 14:02 WBC 7.2 (4.5-11.0) X10^3/uL RBC 3.85 L (4.0-5.2) X10^6/uL Hgb 12.3 (12.0-16.0) g/dL Hct 36.0 (36-46) % MCV 93.6 (80-100) fL MCH 31.9 (26-34) PG MCHC 34.1 (30-36) % RDW 12.9 (11.6-14.8) % Plt Count 229 (150-400) X10^3/uL Neut % (Auto) 76.1 H (50-75) % Lymph % (Auto) 16.8 L (25-40) % [place] % (Auto) 5.9 (3-14) % Eos % (Auto) 0.4 L (2-4) % Baso % (Auto) 0.8 (0-2) % Neut # (Auto) 5500 (1845-9716) /uL Lymph # (Auto) 1200 (9503-6448) /uL [place] # (Auto) 400 (0-900) /uL Eos # (Auto) 0 (0-450) /uL Baso # (Auto) 100 (0-100) /uL ESR (0-20) MM/HR PT 12.1 (10.1-12.7) SECONDS INR 1.0 (0.9-1.3) APTT 31 (26.4-36.2) SECONDS D-Dimer < 200 (<230) ng/mL ABG pH (7.35-7.45) ABG pCO2 (35-45) mmHg ABG pO2 (80-100) mmHg ABG HCO3 (22-26) mmol/L ABG Total CO2 (21-31) mmol/L ABG O2 Saturation (95-100) % ABG Base Excess (-2-2) mmol/L FiO2 Sodium 137 (137-145) mmol/L Potassium 3.8 (3.4-5.1) mmol/L Chloride 105 (98-107) mmol/L Carbon Dioxide 29 (22-32) mmol/L BUN 19 H (7-17) mg/dL Creatinine 0.63 (0.52-1.04) mg/dL Estimated GFR > 60.0 (>60) mL/min BUN/Creatinine Ratio 30.2 H (6-22) Glucose 120 H (70-100) mg/dL Calcium 9.2 (8.4-10.2) mg/dL Total Bilirubin 0.8 (0.2-1.3) mg/dL AST 32 (14-36) IU/L ALT 17 (<35) IU/L Alkaline Phosphatase 92 (38-126) U/L Total Creatine Kinase 119 (30-135) U/L CK-MB (CK-2) 0.87 (<2.37) ng/mL CK-MB (CK-2) Rel Index 0.7 L (1.5-5.0) % Troponin I < 0.012 (0.01-0.034) ng/mL C-Reactive Protein (<1.0) mg/dL Total Protein 7.0 (6.3-8.2) g/dL Albumin 4.2 (3.5-5.0) g/dL Globulin 2.8 (1.7-4.1) g/dL Albumin/Globulin Ratio 1.5 (1.0-2.8) Lipase 144 (23-300) U/L 04/18/20 04/18/20 04/18/20 Range/Units 14:02 14:02 14:40 WBC (4.5-11.0) X10^3/uL RBC (4.0-5.2) X10^6/uL Hgb (12.0-16.0) g/dL Hct (36-46) % MCV (80-100) fL MCH (26-34) PG MCHC (30-36) % RDW (11.6-14.8) % Plt Count (150-400) X10^3/uL Neut % (Auto) (50-75) % Lymph % (Auto) (25-40) % [place] % (Auto) (3-14) % Eos % (Auto) (2-4) % Baso % (Auto) (0-2) % Neut # (Auto) (5737-7450) /uL Lymph # (Auto) (9477-6412) /uL [place] # (Auto) (0-900) /uL Eos # (Auto) (0-450) /uL Baso # (Auto) (0-100) /uL ESR 8 (0-20) MM/HR PT (10.1-12.7) SECONDS INR (0.9-1.3) APTT (26.4-36.2) SECONDS D-Dimer (<230) ng/mL ABG pH 7.42 (7.35-7.45) ABG pCO2 42.3 (35-45) mmHg ABG pO2 91 (80-100) mmHg ABG HCO3 28 H (22-26) mmol/L ABG Total CO2 29 (21-31) mmol/L ABG O2 Saturation 97 (95-100) % ABG Base Excess 3.0 H (-2-2) mmol/L FiO2 21 Sodium (137-145) mmol/L Potassium (3.4-5.1) mmol/L Chloride (98-107) mmol/L Carbon Dioxide (22-32) mmol/L BUN (7-17) mg/dL Creatinine (0.52-1.04) mg/dL Estimated GFR (>60) mL/min BUN/Creatinine Ratio (6-22) Glucose (70-100) mg/dL Calcium (8.4-10.2) mg/dL Total Bilirubin (0.2-1.3) mg/dL AST (14-36) IU/L ALT (<35) IU/L Alkaline Phosphatase (38-126) U/L Total Creatine Kinase (30-135) U/L CK-MB (CK-2) (<2.37) ng/mL CK-MB (CK-2) Rel Index (1.5-5.0) % Troponin I (0.01-0.034) ng/mL C-Reactive Protein < 0.5 (<1.0) mg/dL Total Protein (6.3-8.2) g/dL Albumin (3.5-5.0) g/dL Globulin (1.7-4.1) g/dL Albumin/Globulin Ratio (1.0-2.8) Lipase (23-300) U/L Point of Care Testing Test Results Negative Urine Dip Bedside Urine Glucose Negative Bedside Urine Bilirubin - Negative Bedside Urine Ketone - Negative Urine Specific [place] 1.020 Bedside Urine Occult Blood - Negative Bedside Urine pH 6.0 Bedside Urine Protein - Negative Bedside Urine Urobilinogen - Negative Bedside Urine Nitrite - Negative Bedside Urine Leukocytes - Negative Esterase Imaging Data CT scan - chest: Radiologist's Impression: PROCEDURE: CT ANGIO CHEST PE PROTOCOL INDICATIONS: cyanosis TECHNIQUE: After the administration of intravenous contrast, 2 mm thick sections acquired from the pulmonary apices to the posterior costophrenic angles. 3-dimensional maximum intensity projection (MIP) coronal and sagittal reformats were then acquired through the thorax. For radiation dose reduction, the following was used: automated exposure control, adjustment of mA and/or kV according to patient size. COMPARISON: None. FINDINGS: Image quality: Excellent. Pulmonary arteries: Pulmonary arteries are normal in size, and demonstrate no intraluminal filling defects to suggest central pulmonary embolism. Lungs and pleura: Lungs are clear. No pleural effusions or pneumothorax. Central and peripheral airways are patent. Mediastinum: Heart size is normal, without pericardial effusion. No mediastinal or hilar adenopathy. Thoracic aorta is normal in caliber and enhancement. Esophagus is normal in caliber, without hiatal hernia. Bones and chest wall: No suspicious bony lesions. Ribs and thoracic spine appear intact throughout. Thyroid gland is under . No axillary or supraclavicular adenopathy. Abdomen: Visualized upper abdominal solid organs appear normal in the early arterial phase of enhancement. IMPRESSION: 1. Lungs are clear. No pulmonary embolism. Dictated by: Julia Salazar M.D. on 04/18/2020 at 16:31 Approved by: Julia Salazar M.D. on 04/18/2020 at 16:33 US arterial: Radiologist's Impression: PROCEDURE: US ARTERIAL DUPLEX UE BI INDICATIONS: CYANOSIS HANDS TECHNIQUE: Color and pulse Doppler interrogation was performed of right and left upper extremity arterial systems, with image documentation. COMPARISON: None. FINDINGS: Right upper extremity: Triphasic waveforms are seen in all vessels. The peak systolic velocities seen within the right common carotid, subclavian, axillary, brachial, ulnar and radial arteries measures 80, 105, 100, 79, 72, 80 cm/2nd. Left upper extremity: Triphasic waveforms are seen in all vessels. The peak systolic velocities within the left common carotid, subclavian, axillary, brachial, ulnar, radial arteries measures 148, 147, 129, 95, 53, 58 cm/second. IMPRESSION: Normal examination. No evidence of occlusion or focal stenosis. Dictated by: Lucho Witt M.D. on 04/18/2020 at 16:52 Approved by: Lucho Witt M.D. on 04/18/2020 at 16:55 ECG Data Attestation EKG: I personally reviewed and interpreted this ECG as follows: Prior ECG tracings: available for review Interpretation: Normal sinus rhythm rate 78 p.r. interval 152 QRS [address] changes no T-wave inversions no Q-waves similar to previous EKG MDM Narrative Medical decision making narrative: The patient has obvious bluish discoloration to the palmar sides of both hands worse on the right than the left seems to fluctuate. Her hands are warm with good pulses Multiple etiologies for patient's symptoms considered including: Reduced cardiac output, cold exposure, arterial or venous obstruction, also all causes of central cyanosis can cause peripheral cyanosis including PE, pulmonary edema methemoglobin anemia. Patient is overall not hypoxic and appears well with warm hands, with normal O2 level in no respiratory distress. I discussed case with Dr. aparicio hospitalist briefly suggested it may be related to her probable connective tissue disease. Patient does have an appointment or referral to Rheumatology however not until May. 3:30 p.m. I discussed with William Rogers vascular PA at [place], at this time nothing for vascular to do with good strong pulses. The patient overall appears well no cause of central cyanosis identified recommend continuing her outpatient follow-up and referral to Rheumatology. Discharge Plan Departure Patient Disposition: Home Clinical Impression: Peripheral cyanosis Discharge Date/Time: 04/18/20 17:30 Activity Restrictions/Additional Instructions: *You have been diagnosed with peripheral cyanosis *What to do: At this time I think you do have an issue with cyanosis. It may or may not be related to a possible connective tissue disease that you have. At this time there is no emergent cause. Please pay close attention to it and if it is worsening return to the ER immediately *Continue to take medications as directed *Follow up with your primary care provider in 2-3 days Please follow-up with Rheumatology, call for expedited referral *Return to ER if you should have increased blue color, pain, weakness, numbness, tingling or any new, worsening or concerning symptoms Prescriptions: No Action multivitamin [Multiple Vitamins] 1 EACH tablet 1 tab PO QDAY Qty: 0 RF: 0 fluticasone propionate 16 GM spray,suspension 1 spray Intranasal SEE INSTRUCTIONS Qty: 16 RF: 2 meclizine 12.5 mg Tablet 25 mg PO Q6HR Qty: 90 RF: 1 clopidogrel 75 mg Tablet 75 mg PO DAILY Qty: 30 RF: 2 diazepam 2 mg Tablet 2 mg PO Q4HR PRN (Reason: dizzyness) Qty: 60 RF: 1 ondansetron 8 mg tablet,disintegrating 4 mg PO BID PRN (Reason: nausea and vomiting) Qty: 30 RF: 1
[2020-04-18 14:28] LABS: Prothrombin Time 12.1 SECONDS (10.1-12.7)
[2020-04-18 14:30] LABS: PTT Partial Thromboplastin Tim 31 SECONDS (26.4-36.2)
[2020-04-18 14:32] LABS: Alanine Aminotransferase 17 IU/L (<35); Albumin 4.2 g/dL (3.5-5.0); Albumin Globulin Ratio 1.5 (1.0-2.8); Alkaline Phosphatase 92 U/L (38-126); Aspartate Aminotransferase 32 IU/L (14-36); BUN Creatinine Ratio 30.2 (6-22); Bilirubin Total 0.8 mg/dL (0.2-1.3); Blood Urea Nitrogen 19 mg/dL (7-17); Calcium 9.2 mg/dL (8.4-10.2); Carbon Dioxide 29 mmol/L (22-32); Chloride 105 mmol/L (98-107); Creatine Kinase 119 U/L (30-135); Estimated Glomerular Filt Rate > 60.0 mL/min (>60); Globulin 2.8 g/dL (1.7-4.1); Glucose 120 mg/dL (70-100); HEMOLYSIS < 15 (0-50); Lipase 144 U/L (23-300); Potassium 3.8 mmol/L (3.4-5.1); Sodium 137 mmol/L (137-145)
[2020-04-18 14:34] LABS: D Dimer < 200 ng/mL (<230)
[2020-04-18 14:44] LABS: Troponin I < 0.012 ng/mL (0.01-0.034)
[2020-04-18 14:48] LABS: CKMB % Relative Index 0.7 % (1.5-5.0); Creatine Kinase MB 0.87 ng/mL (<2.37)
[2020-04-18 14:50] LABS: Erythrocyte Sedimentation Rate 8 MM/HR (0-20)
[2020-04-18 14:59] LABS: HCO3 ABG 28 mmol/L (22-26); PCO2 ABG 42.3 mmHg (35-45); PO2 ABG 91 mmHg (80-100); pH ABG 7.42 (7.35-7.45)
[2020-04-18 15:00] LABS: Fractionated Inspired Oxygen 21; Oxygen Saturation ABG 97 % (95-100); TCO2 ABG 29 mmol/L (21-31)
[2020-04-18 15:17] LABS: C-Reactive Protein Quant < 0.5 mg/dL (<1.0)
--- NOTE | 2020-04-18 15:20 | DI.US.S_ITS ---
PROCEDURE: US ARTERIAL DUPLEX UE BI INDICATIONS: CYANOSIS HANDS TECHNIQUE: Color and pulse Doppler interrogation was performed of right and left upper extremity arterial systems, with image documentation. COMPARISON: None. FINDINGS: Right upper extremity: Triphasic waveforms are seen in all vessels. The peak systolic velocities seen within the right common carotid, subclavian, axillary, brachial, ulnar and radial arteries measures 80, 105, 100, 79, 72, 80 cm/2nd. Left upper extremity: Triphasic waveforms are seen in all vessels. The peak systolic velocities within the left common carotid, subclavian, axillary, brachial, ulnar, radial arteries measures 148, 147, 129, 95, 53, 58 cm/second. IMPRESSION: Normal examination. No evidence of occlusion or focal stenosis. Dictated by: Lucho Witt M.D. on 04/18/2020 at 16:52 Approved by: Lucho Witt M.D. on 04/18/2020 at 16:55
--- NOTE | 2020-04-18 15:21 | DI.CT.S_ITS ---
PROCEDURE: CT ANGIO CHEST PE PROTOCOL INDICATIONS: cyanosis TECHNIQUE: After the administration of intravenous contrast, 2 mm thick sections acquired from the pulmonary apices to the posterior costophrenic angles. 3-dimensional maximum intensity projection (MIP) coronal and sagittal reformats were then acquired through the thorax. For radiation dose reduction, the following was used: automated exposure control, adjustment of mA and/or kV according to patient size. COMPARISON: None. FINDINGS: Image quality: Excellent. Pulmonary arteries: Pulmonary arteries are normal in size, and demonstrate no intraluminal filling defects to suggest central pulmonary embolism. Lungs and pleura: Lungs are clear. No pleural effusions or pneumothorax. Central and peripheral airways are patent. Mediastinum: Heart size is normal, without pericardial effusion. No mediastinal or hilar adenopathy. Thoracic aorta is normal in caliber and enhancement. Esophagus is normal in caliber, without hiatal hernia. Bones and chest wall: No suspicious bony lesions. Ribs and thoracic spine appear intact throughout. Thyroid gland is under . No axillary or supraclavicular adenopathy. Abdomen: Visualized upper abdominal solid organs appear normal in the early arterial phase of enhancement. IMPRESSION: 1. Lungs are clear. No pulmonary embolism. Dictated by: Julia Salazar M.D. on 04/18/2020 at 16:31 Approved by: Julia Salazar M.D. on 04/18/2020 at 16:33
== END 2020-04-18 17:30 | disposition home or self-care (01) ==
PROVIDERS: Emergency Provider Emergency Medicine
DX: R23.0 Cyanosis (principal); I77.74 Dissection of vertebral artery
CPT/HCPCS: 36415; 36600; 71275; 80053; 81003; 81025; 82550; 82553; 82805; 83690; 84484; 85025; 85379; 85610; 85651; 85730; 86140; 93005; 93930; 99284; Q9967

== ENCOUNTER 2020-06-04 13:49 | Emergency (ER) | payer OTHER, SELFPAY ==
[2020-06-04 13:50] VITALS: BP 123/84; PULSE 94; RESP 14; TEMP 36.9; O2SAT 97; BMI 23.5
--- NOTE | 2020-06-04 14:32 | PC.NURSE ---
Pt came out concerned that we were not taking her blue hands seriously. I assured her that we were and that we were just waiting on the Dr who was making her rounds to see her. Patient kept stating that its not a joke and not something to laugh at despite our attempts to assure her that we took this seriously and just needed to receive orders from the Dr. returned to the room and 5 minutes later walked out with her hat and coat on and would not respond to attempts to speak with her.
--- NOTE | 2020-06-04 14:39 | PC.NURSE ---
Pt had areas of blue young to palms of hands. Blanchable. States this has happened one other time, here and had a prior work-up. Has not had vascular follow up yet.
== END 2020-06-04 14:35 | disposition left against medical advice (07) ==
CPT/HCPCS: 99281

== ENCOUNTER → 2020-07-14 08:37 | Outpatient (CLI) | payer OTHER, SELFPAY ==
[2020-07-14 10:21] LABS: Add Manual Diff / Slide Review NO; Basophils Absolute Auto 100 /uL (0-100); Basophils Percent Auto 0.9 % (0-2); Eosinophils Absolute Auto 0 /uL (0-450); Eosinophils Percent Auto 0.2 % (2-4); Hematocrit 42.1 % (36-46); Hemoglobin 14.4 g/dL (12.0-16.0); Lymphocytes Absolute Auto 1300 /uL (1100-4500); Lymphocytes Percent Auto 17.4 % (25-40); Mean Corpuscular HGB Conc 34.3 % (30-36); Mean Corpuscular Hemoglobin 31.8 PG (26-34); Mean Corpuscular Volume 92.8 fL (80-100); Monocytes Absolute Auto 300 /uL (0-900); Monocytes Percent Auto 3.9 % (3-14); Neutrophils Absolute Auto 5700 /uL (1500-7000); Neutrophils Percent Auto 77.6 % (50-75); Platelet Count 220 X10^3/uL (150-400); Red Blood Cell Count 4.53 X10^6/uL (4.0-5.2); Red Cell Distribution Width 12.7 % (11.6-14.8); White Blood Cell Count 7.4 X10^3/uL (4.5-11.0)
[2020-07-14 10:30] LABS: Prothrombin Time 11.7 SECONDS (10.1-12.7)
[2020-07-14 10:32] LABS: PTT Partial Thromboplastin Tim 34 SECONDS (26.4-36.2)
[2020-07-14 10:40] LABS: Alanine Aminotransferase 21 IU/L (<35); Albumin 4.6 g/dL (3.5-5.0); Albumin Globulin Ratio 1.4 (1.0-2.8); Alkaline Phosphatase 116 U/L (38-126); Aspartate Aminotransferase 39 IU/L (14-36); BUN Creatinine Ratio 24.6 (6-22); Bilirubin Total 0.8 mg/dL (0.2-1.3); Blood Urea Nitrogen 15 mg/dL (7-17); C-Reactive Protein Quant < 0.5 mg/dL (<1.0); Calcium 9.7 mg/dL (8.4-10.2); Carbon Dioxide 28 mmol/L (22-32); Chloride 104 mmol/L (98-107); Estimated Glomerular Filt Rate > 60.0 mL/min (>60); Globulin 3.3 g/dL (1.7-4.1); Glucose 108 mg/dL (70-100); HEMOLYSIS < 15 (0-50); Rheumatoid Factor < 8.6 IU/mL (<12.0); Sodium 137 mmol/L (137-145); Total Protein 7.9 g/dL (6.3-8.2)
[2020-07-14 11:17] LABS: Thyroid Stimulating Hormone 1.37 uIU/mL (0.47-4.68)
[2020-07-14 18:45] LABS: Erythrocyte Sedimentation Rate 4 MM/HR (0-20)
[2020-07-15 14:37] LABS: ANA Screen, IFA Negative (.)
[2020-07-16 20:08] LABS: CCP Antibodies IgG/IgA 6 units (0-19)
== END ==
PROVIDERS: PCP Physician Assistant; Referring Provider Physician Assistant; Visit Provider Physician Assistant
DX: R23.0 Cyanosis (principal); M25.50 Pain in unspecified joint; L40.9 Psoriasis, unspecified; R53.83 Other fatigue
CPT/HCPCS: 36415; 80053; 84443; 85025; 85610; 85651; 85730; 86038; 86140; 86200; 86430

== ENCOUNTER → 2020-07-19 08:08 | Outpatient (CLI) | payer OTHER, SELFPAY ==
--- NOTE | 2020-07-19 | DI.MRI.S_ITS ---
PROCEDURE: MR LUMBAR SPINE WO CON INDICATIONS: Spondylosis without myelopathy or radiculopathy, lumbar vikram TECHNIQUE: Noncontrast sagittal T1 spin echo and T2 fast echo, sagittal STIR, axial T1 and T2 fast spin echo through the lumbar spine. In cases with scoliosis, additional coronal T2 fast spin echo may be performed. COMPARISON: [facility], MR, L-SPINE W&WO CONTRAST, 03/29/2014, 14:53 [facility], CR, XR LUMBAR SPINE 2-3V, 05/25/2018, 13:34. [facility], MR, L-SPINE WITHOUT CONTRAST, 12/20/2008, 7:15. FINDINGS: Image quality: Excellent. Alignment and Curvature: There is normal bony alignment. Bone Marrow: Marrow is of normal overall signal. Minimal reactive endplate changes are present at L3-4, L4-5. No acute vertebral body compression fractures. Spinal Cord: Conus medullaris terminates at the L1-2 level. Visualized cord demonstrates normal signal and size. Paraspinous Soft Tissues: No paravertebral masses. Discs: Moderate desiccation is present L4-5, minimal to mild throughout the remainder of the lumbar spine. L1-L2: No disc bulge, spinal stenosis or foraminal narrowing. Mild facet and ligamentum flavum hypertrophy. Stable appearance. L2-L3: No disc bulge, spinal stenosis or foraminal narrowing. Mild facet and ligamentum flavum hypertrophy. Stable appearance. L3-L4: Minimal disc bulge with slight appearance of canal narrowing. Minimal to mild left foraminal narrowing. Facet and ligamentum flavum hypertrophy are present. Minimal interval progression is noted. L4-L5: Mild disc bulge with mild canal narrowing. Previously noted slight posterior disc prominence which enhanced on prior exam is not directly visualized. It is noted that this is a noncontrast exam. Mild right and minimal left foraminal narrowing with facet and ligamentum flavum hypertrophy. Left hemilaminectomy changes present. No interval change. L5-S1: Mild disc bulge without spinal stenosis. Minimal to mild narrowing to the subarticular recesses bilaterally. Facet hypertrophy is present. Stable appearance. IMPRESSION: 1. Early degenerative changes with minimal interval progression. 2. Focus of disc prominence to the left of midline at L4-5 previously noted to be enhancing is not visualized on current exam, although this is a noncontrast study. No superimposed disc protrusion is identified. Dictated by: Julia Salazar M.D. on 07/21/2020 at 10:52 Approved by: Julia Salazar M.D. on 07/21/2020 at 11:00
--- NOTE | 2020-07-19 | DI.MRI.S_ITS ---
PROCEDURE: MR SHOULDER LT WO CON INDICATIONS: PAIN TECHNIQUE: Noncontrast oblique coronal T2 fast spin echo with fat saturation, oblique sagittal T1 spin echo and T2 fast spin echo with fat saturation, axial T1 spin echo and T2 fast spin echo with fat saturation through the shoulder. COMPARISON: None. FINDINGS: Image quality: Excellent. Rotator cuff: There is partial-thickness tear of the supraspinatus involving the footprint. No tendon retraction or supraspinatus muscle atrophy. There is infraspinatus, and subscapularis tendons tendinosis. Bones and bursae: No bone marrow contusions or fractures. Mild acromioclavicular and moderate glenohumeral joint degeneration. The acromion demonstrates conventional anatomy, without an os acromiale. Small subcoracoid bursal fluid is present. Capsule and soft tissues: There is a small posterior labral tear. Degenerative fraying of the anterior labrum. In the absence of intra-articular contrast, the glenohumeral ligaments appear intact. The long head of the biceps tendon demonstrates normal location and morphology. The rotator interval appears normal, without fibrosis. The coracohumeral ligament is normal in thickness. IMPRESSION: 1. Partial thickness tear of the supraspinatus tendon involving the footprint. 2. Infraspinatus and subscapularis tendinosis. 3. Mild acromioclavicular and moderate glenohumeral joint degeneration. 4. Small posterior labral tear. 5. Degenerative fraying of the anterior labrum. 6. Small subcoracoid bursal fluid consistent with mild bursitis. Dictated by: Talib Thacker M.D. on 07/21/2020 at 13:13 Approved by: Talib Thacker M.D. on 07/21/2020 at 17:38
== END ==
PROVIDERS: PCP Physician Assistant; Referring Provider Physical Medicine & Rehabilitation; Visit Provider Physical Medicine & Rehabilitation
DX: M47.816 Spondylosis without myelopathy or radiculopathy, lumbar region (principal); M75.42 Impingement syndrome of left shoulder; M75.112 Incomplete rotator cuff tear or rupture of left shoulder, not specified as traumatic; M19.012 Primary osteoarthritis, left shoulder; S43.492A Other sprain of left shoulder joint, initial encounter
CPT/HCPCS: 72148; 73221

== ENCOUNTER → 2020-09-05 09:51 | Outpatient (CLI) | payer OTHER, SELFPAY ==
[2020-09-05] MEDS: COVID-19 VACC #1, MRNA(MOD) 100 MCG/0.5 ML VIAL IM (09:56)
== END ==
PROVIDERS: PCP Physician Assistant; Visit Provider Internal Medicine
DX: Z23 Encounter for immunization (principal)
CPT/HCPCS: 0011A; 91301

== ENCOUNTER → 2020-10-03 07:49 | Outpatient (CLI) | payer OTHER, SELFPAY ==
[2020-10-03] MEDS: COVID-19 VACC #2, MRNA(MOD) 100 MCG/0.5 ML VIAL IM (07:53)
== END ==
PROVIDERS: PCP Physician Assistant; Visit Provider Internal Medicine
DX: Z23 Encounter for immunization (principal)
CPT/HCPCS: 0012A; 91301

== ENCOUNTER → 2021-03-11 08:19 | Outpatient (CLI) | payer OTHER, SELFPAY ==
[2021-03-11 08:51] LABS: COVID19 -Nasal RAPID Negative (Negative)
== END ==
PROVIDERS: PCP Physician Assistant; Visit Provider Nurse Practitioner Family
DX: Z20.822 Contact with and (suspected) exposure to COVID-19 (principal); R09.81 Nasal congestion; R11.0 Nausea
CPT/HCPCS: 87635

== ENCOUNTER → 2022-04-09 15:17 | Outpatient (CLI) | payer OTHER, SELFPAY ==
--- NOTE | 2022-04-09 15:21 | DI.MRI.S_ITS ---
PROCEDURE: MR ANGIO NECK W CON INDICATIONS: Cyanosis arms TECHNIQUE: Axial and sagittal TruFISP through the neck. Coronal dynamic MRA after the administration of contrast in the arterial and venous phases, with rotating 3-dimensional maximum intensity projection (MIP) reformats constructed from subtraction images. COMPARISON: [facility], MR, MR ANGIO NECK W CON, 04/13/2019, 7:14. FINDINGS: Image quality: Excellent. Carotid system: Great vessels demonstrate a conventional anatomy as they arise from the aortic arch. The origins of the common carotid arteries appear normal. The calibers and courses of the common carotid arteries are likewise normal. The carotid bifurcations appear normal bilaterally. The internal carotid arteries are widely patent up to the [place]. Posterior circulation: There is a left vertebral artery dominance. The right vertebral artery demonstrates a diminutive appearance of signal intensity throughout its course. Overall appearance is unchanged compared to prior exam. Miscellaneous: Subclavian arteries are patent throughout. Pre-contrast images through the neck demonstrate no soft tissue abnormalities. IMPRESSION: Stable interval exam demonstrating diminutive signal within the right vertebral artery. 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 If further evaluation is warranted, CTA may be obtained. Any quantitative measurements of stenosis were performed using NASCET criteria. Dictated by: Julia Salazar M.D. on 04/09/2022 at 16:59 Approved by: Julia Salazar M.D. on 04/09/2022 at 17:02
== END ==
PROVIDERS: PCP Naturopath; Referring Provider Naturopath; Visit Provider Naturopath
DX: R23.0 Cyanosis (principal)
CPT/HCPCS: 70548; A9579

== ENCOUNTER → 2022-04-22 16:35 | Outpatient (CLI) | payer OTHER, SELFPAY ==
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
== END ==
PROVIDERS: PCP Naturopath; Referring Provider Orthopaedic Surgery; Visit Provider Orthopaedic Surgery
DX: M47.22 Other spondylosis with radiculopathy, cervical region (principal); M75.112 Incomplete rotator cuff tear or rupture of left shoulder, not specified as traumatic; M19.012 Primary osteoarthritis, left shoulder
CPT/HCPCS: 73221

== ENCOUNTER 2023-03-15 10:24 | Emergency (ER) | payer OTHER, SELFPAY ==
[2023-03-15 10:28] VITALS: BP 134/73; PULSE 81; RESP 18; TEMP 36.7; O2SAT 96; BMI 21.7
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
== END 2023-03-15 11:46 | disposition home or self-care (01) ==
PROVIDERS: Emergency Provider Student in an Organized Health Care Education/Training Program; PCP Naturopath
DX: M25.562 Pain in left knee (principal); M25.561 Pain in right knee
CPT/HCPCS: 73562; 99283